=== PATIENT | male | born 1980 | race Caucasian/White ===

== ENCOUNTER 2018-06-07 19:08 | Emergency (ER) | payer OTHER ==
[2018-06-07] MEDS ORDERED: MORPHINE SULFATE 4 MG INJ (19:46)
[2018-06-07] MEDS ORDERED: Sodium Chloride 0.9% 1000 ML 1,000 ML (19:46)
[2018-06-07] MEDS: MORPHINE SULFATE 4 MG INJ IV (19:59)
[2018-06-07] MEDS: Sodium Chloride 0.9% 1000 ML 1,000 ML IV (19:59)
[2018-06-07 20:03] LABS: BASOPHIL % 0.3 % (0.0-0.4); Basophil (Absolute #) 0.04 (0-0.4); Eosinophil % 0.7 % (0.00-5.0); Eosinophil (Absolute #) 0.09 (0-0.5); Granulocyte Absolute (ANC) 8.08 (1.4-6.9); Granulocytes % 64.3 % (36.0-66.0); Hematocrit 42.9 % (42-50); Hemoglobin 14.6 gm/dl (12.5-18.0); Lymphocyte (Absolute #) 3.31 (1.0-4.6); Lymphocytes % 26.3 % (24.0-44.0); Mean Cell Volume 91.9 fl (78-100); Mean Corpuscular Hemoglobin 31.3 pg (26-32); Mean Platelet Volume 10.4 fl (6-9.5); Monocyte (Absolute #) 1.05 (0.0-1.3); Monocytes % 8.4 % (0.0-12.0); Platelet Count 291 K/mm3 (150-450); Red Blood Count 4.67 M/mm3 (4.1-5.6); Red Cell Distribution Width 13.9 % (11.5-14.0); White Blood Count 12.6 K/mm3 (4.0-10.5)
[2018-06-07 20:07] LABS: ADD MANUAL DIFF? NO (NO)
[2018-06-07 20:11] LABS: Lactic Acid 0.9 (0.4-2.0)
[2018-06-07 20:21] LABS: ALBUMIN 4.4 g/dL (3.5-5.0); ALKALINE PHOSPHATASE 114 U/L (38-126); AMYLASE 48 U/L (30-110); ANION GAP 13.1 MEQ/L (5-15); BLOOD UREA NITROGEN 7 mg/dL (9-20); CHLORIDE 105 mmol/L (98-107); Calcium 9.4 mg/dL (8.4-10.2); Carbon Dioxide 24 mmol/L (22-30); Creatinine 1 0.84 mg/dL (0.66-1.25); EST GLOMERULAR FILTRATION RATE > 60.0 ML/MIN; Glucose 86 mg/dL (74-106); LIPASE 126 U/L (23-300); Potassium 3.2 mmol/L (3.5-5.1); SGOT/AST 32 U/L (17-59); SGPT/ALT 48 U/L (0-50); SODIUM 140 mmol/L (137-145); Total Protein 7.3 g/dL (6.3-8.2)
[2018-06-07 20:27] LABS: Appearance CLEAR (CLEAR); Bilirubin NEGATIVE (NEGATIVE); Blood NEGATIVE Ery/ul (0-5); COMPLETE URINE MICROSCOPIC? YES; Collection Type VOID; Glucose NEGATIVE (NEGATIVE); Ketones NEGATIVE (NEGATIVE); Leukocyte Esterase TRACE (NEGATIVE); Nitrite NEGATIVE (NEGATIVE); Protein,Urine Dip NEGATIVE (Negative); Urobilinogen NORMAL mg/dL (0-1)
[2018-06-07 20:28] LABS: ADD URINE CULTURE? NO (NO); Bacteria RARE /HPF (NEGATIVE); Epithelial Cells RARE /HPF (FEW); RBC 0-2 /HPF (0-2); WBC 0-2 /HPF (0-5)
[2018-06-07] MEDS ORDERED: K-LYTE 25 MEQ (21:20)
[2018-06-07] MEDS: K-LYTE 25 MEQ PO (21:25)
== END 2018-06-07 21:39 | disposition home or self-care (01) ==
LOC: ED 19:08
CPT/HCPCS: 36000; 36415; 80053; 81000; 82150; 83605; 83690; 85025; 96374; J2270

== ENCOUNTER 2018-07-31 15:40 | Emergency (ER) | payer OTHER ==
[2018-07-31] MEDS ORDERED: Phenergan 25 MG INJ IV ONE (15:57)
[2018-07-31] MEDS ORDERED: Sodium Chloride 0.9% 1000 ML 1,000 ML IV STA (15:57)
[2018-07-31] MEDS ORDERED: Pepcid 20 MG VIAL IV ONE ×2 (15:57→16:02)
[2018-07-31] MEDS ORDERED: Phenergan 25 MG INJ ONE (16:02)
[2018-07-31] MEDS ORDERED: Sodium Chloride 0.9% 1000 ML 1,000 ML ONE (16:02)
--- NOTE | 2018-07-31 16:04 | ERPHSYRPT ---
- History of Present Illness Time Seen by Provider: 07/31/18 15:59 Historian: patient Exam Limitations: no limitations Patient Subjective Stated Complaint: upper abd pain and vomiting since thursday. denies diarrhea Triage Nursing Assessment: ambulated to room per self. skin w/d, color pale, resp nonlabored. abd soft, tender upper abd. normal bowel sounds. Physician History: This is a 37-year-old white male with history of migraines, seizures, congenital heart disease, high blood pressure, asthma, bronchitis, adrenal insufficiency, hyperthyroidism, arthritis, degenerative disc disease, GERD. Patient arrives with complaint of persistent nausea and vomiting for 6 days he also states he has pain in the epigastric region he states that he presented to [facility] for the second time for the same complaint. Him with him for the fact (patient was seen earlier in the week by [facility]) he was sent to the emergency room for evaluation. pain is described as aching. Past medical history includes migraines, seizures, congenital heart disease, high blood pressure, asthma, bronchitis, adrenal insufficiency, hyperthyroidism , arthritis, degenerative disc disease, GERD, hemorrhoids, ulcers, anxiety, depression, problems eating, panic disorder. Chronic pain. Past surgical history includes tonsillectomy sinus surgeries myringotomy tubes, Social history includes tobacco use, marijuana use patient denies alcohol or illicit drug use. Timing/Duration: day(s) Activities at Onset: none Quality: aching Abdominal Pain Onset Location: epigastric Pain Radiation: no radiation Severity of Pain-Max: moderate Severity of Pain-Current: moderate Associated Symptoms: heartburn, nausea, vomiting, No back, No chest pain, No diaphoresis, No diarrhea, No fever/chills, No fatigue, No headache, No loss of appetite, No neck pain, No rash, No shortness of breath, No syncope Previous symptoms: same symptoms as today, recently seen (seen at [facility] earlier this week for the same, sent to ER from [facility] today) Allergies/Adverse Reactions: No Known Drug Allergies Allergy (Verified 07/31/18 15:51) Home Medications: PANTOPRAZOLE 40 mg Tablet [Protonix 40MG Tablet] 40 mg PO DAILY 12/20/15 [ History] Albuterol Common Canister [Proventil Common Canister] 1 ea IH UD 06/07/18 [History] Amlodipine Besylate 10 mg PO BID 06/07/18 [History] Diclofenac Sodium 50 mg PO DAILY 06/07/18 [History] Fluticasone Propionate [Flonase NASAL] 16 gm NS DAILY 06/07/18 [History] Haloperidol 5 mg PO DAILY 06/07/18 [History] Lisinopril 40 mg PO DAILY 06/07/18 [History] Loratadine 10 mg PO DAILY 06/07/18 [History] Montelukast Sodium 10 mg [Singulair 10 MG] 10 mg PO DAILY 06/07/18 [History] OLANZapine [Zyprexa] 1 tab PO DAILY 06/07/18 [History] Pregabalin [Lyrica 150Mg] 150 mg PO DAILY 06/07/18 [History] Propranolol HCl 60 mg PO DAILY 06/07/18 [History] Simvastatin 10 mg PO DAILY 06/07/18 [History] Hx Tetanus, Diphtheria Vaccination/Date Given: No Hx Influenza Vaccination/Date Given: No Hx Pneumococcal Vaccination/Date Given: No - Review of Systems Constitutional: No Fever, No Chills Eyes: No Symptoms Ears, Nose, & Throat: No Symptoms Respiratory: No Cough, No Dyspnea Cardiac: No Chest Pain, No Edema, No Syncope Abdominal/Gastrointestinal: Abdominal Pain, Nausea, Vomiting, No Diarrhea, No Constipation, No Hematemesis, No Hematochezia, No Melena, No Dysphagia, No Appetite Changes Genitourinary Symptoms: No Dysuria Musculoskeletal: No Back Pain, No Neck Pain Skin: No Rash Neurological: No Dizziness, No Focal Weakness, No Sensory Changes Psychological: No Symptoms Endocrine: No Symptoms All Other Systems: Reviewed and Negative - Past Medical History Pertinent Past Medical History: Yes Neurological History: Migraines ENT History: No Pertinent History Cardiac History: Congenital Heart Disease, Hypertension, Other Respiratory History: Asthma, Bronchitis Endocrine Medical History: Adrenal Insufficiency, Hyperthyroidism Musculoskeletal History: Arthritis, Degenerative Disk Disease GI Medical History: GERD, Hemorrhoids, Ulcer, Other History: Other Psycho-Social History: Anxiety, Depression, Eating Disorders, Panic Disorder Male Reproductive Disorders: No Pertinent History Other Medical History: ANXIETY, DEPRESSION, PANIC DISORDER - Past Surgical History Past Surgical History: Yes Neuro Surgical History: No Pertinent History Cardiac: No Pertinent History Respiratory: No Pertinent History Gastrointestinal: No Pertinent History Genitourinary: No Pertinent History Musculoskeletal: No Pertinent History Male Surgical History: No Pertinent History Other Surgical History: sinus surgery, tubes in ears - Social History Smoking Status: Current every day smoker How long have you smoked: 29 Exposure to second hand smoke: No Drug Use: marijuana Patient Lives Alone: No - Nursing Vital Signs Nursing Vital Signs: Initial Vital Signs Temperature 98.3 F 07/31/18 15:43 Pulse Rate 93 H 07/31/18 15:43 Respiratory Rate 16 07/31/18 15:43 Blood Pressure 136/88 07/31/18 15:43 O2 Sat by Pulse Oximetry 98 07/31/18 15:43 Pain Scale Pain Intensity 0 - Physical Exam General Appearance: no apparent distress, alert Eye Exam: PERRL/EOMI, eyes nml inspection Ears, Nose, Throat Exam: normal ENT inspection, pharynx normal, moist mucous membranes Neck Exam: normal inspection, non-tender, supple, full range of motion Respiratory Exam: normal breath sounds, lungs clear, No respiratory distress Cardiovascular Exam: regular rate/rhythm, normal heart sounds, normal peripheral pulses, capillary refill <2 sec Gastrointestinal/Abdomen Exam: soft, normal bowel sounds, tenderness ( Epigastric tenderness with palpation), No guarding, No ecchymosis, No pulsatile mass, No rebound, No organomegaly, No splenomegaly Back Exam: normal inspection, normal range of motion, No CVA tenderness, No vertebral tenderness Extremity Exam: normal inspection, normal range of motion, pelvis stable Neurologic Exam: alert, oriented x 3, cooperative, flanger II-XII nml as tested, normal mood/affect, nml cerebellar function, sensation nml, No motor deficits Skin Exam: normal color, warm, dry SpO2 Interpretation: normal (98%) SpO2: 98 Oxygen Delivery: Room Air - Course Nursing assessment & vital signs reviewed: Yes - CT Exams Abdomen/Pelvis CT Interpretation: Tele-radiologist Report (CT abdomen and pelvis: Impression: No acute findings) Ordered Tests: Active Orders 24 hr Category Date Time Status IV Insertion STAT Care 07/31/18 15:57 Active ABDOMEN AND PELVIS W CONTRAST [CT] Stat Exams 07/31/18 16:25 Taken AMYLASE Stat Lab 07/31/18 15:55 Completed CBC W DIFF Stat Lab 07/31/18 15:55 Completed CMP Stat Lab 07/31/18 15:55 Completed LIPASE Stat Lab 10/27/18 15:55 Completed UA W/RFX UR CULTURE Stat Lab 07/31/18 16:54 Completed Urine Triage Profile Stat Lab 07/31/18 16:54 Completed Medication Summary Discontinued Medications Generic Name Dose Route Start Last Admin Trade Name Paco PRN Reason Stop Dose Admin Famotidine 20 mg 07/31/18 15:57 07/31/18 16:04 Pepcid 20 Mg Vial IV 07/31/18 15:58 20 mg STAT ONE Administration Famotidine Confirm 07/31/18 16:02 Pepcid 20 Mg Vial Administered 07/31/18 16:03 Dose 20 mg IV .STK-MED ONE Sodium Chloride 1,000 mls @ 999 mls/hr 07/31/18 15:57 07/31/18 16:04 Sodium Chloride 0.9% 1000 Ml IV 07/31/18 16:57 999 mls/hr .Q1H1M STA Administration Sodium Chloride Confirm 07/31/18 16:02 Sodium Chloride 0.9% 1000 Ml Administered 07/31/18 16:03 Dose 1,000 mls @ ud .ROUTE .STK-MED ONE Morphine Sulfate 4 mg 07/31/18 16:25 07/31/18 16:28 Morphine Sulfate 4 Mg Inj IV 07/31/18 16:26 4 mg STAT ONE Administration Morphine Sulfate Confirm 07/31/18 16:27 Morphine Sulfate 4 Mg Inj Administered 07/31/18 16:28 Dose 4 mg .ROUTE .STK-MED ONE Promethazine HCl 12.5 mg 07/31/18 15:57 07/31/18 16:04 Phenergan 25 Mg Inj IV 07/31/18 15:58 12.5 mg STAT ONE Administration Promethazine HCl Confirm 07/31/18 16:02 Phenergan 25 Mg Inj Administered 07/31/18 16:03 Dose 25 mg .ROUTE .STK-MED ONE Lab/Rad Data: Laboratory Result Diagrams 07/31/18 15:55 07/31/18 15:55 Laboratory Results 07/31/18 07/31/18 07/31/18 Range/Units 16:54 16:54 15:55 WBC (4.0-10.5) K/mm3 RBC (4.1-5.6) M/mm3 Hgb (12.5-18.0) gm/dl Hct (42-50) % MCV (78-100) fl MCH (26-32) pg MCHC (32-36) g/dl RDW (11.5-14.0) % Plt Count (150-450) K/mm3 MPV (6-9.5) fl Gran % (36.0-66.0) % Eos # (Auto) (0-0.5) Absolute Lymphs (auto) (1.0-4.6) Absolute Monos (auto) (0.0-1.3) Lymphocytes % (24.0-44.0) % Monocytes % (0.0-12.0) % Eosinophils % (0.00-5.0) % Basophils % (0.0-0.4) % Absolute Granulocytes (1.4-6.9) Basophils # (0-0.4) Sodium 142 (137-145) mmol/L Potassium 3.5 (3.5-5.1) mmol/L Chloride 102 (98-107) mmol/L Carbon Dioxide 28 (22-30) mmol/L Anion Gap 15.7 H (5-15) MEQ/L BUN 8 L (9-20) mg/dL Creatinine 0.78 (0.66-1.25) mg/dL Estimated GFR > 60.0 ML/MIN Glucose 112 H (74-106) mg/dL Calcium 9.9 (8.4-10.2) mg/dL Total Bilirubin 0.50 (0.2-1.3) mg/dL AST 35 (17-59) U/L ALT 66 H (0-50) U/L Alkaline Phosphatase 121 (38-126) U/L Serum Total Protein 7.7 (6.3-8.2) g/dL Albumin 4.7 (3.5-5.0) g/dL Amylase 62 (30-110) U/L Lipase 68 (23-300) U/L Urine Color YELLOW (YELLOW) Urine Appearance CLOUDY (CLEAR) Urine pH 7.0 (5-6) Ur Specific [place] 1.012 (1.005-1.025) Urine Protein NEGATIVE (Negative) Urine Ketones TRACE (NEGATIVE) Urine Blood NEGATIVE (0-5) Aquiles/ul Urine Nitrite NEGATIVE (NEGATIVE) Urine Bilirubin NEGATIVE (NEGATIVE) Urine Urobilinogen NEGATIVE (0-1) mg/dL Ur Leukocyte Esterase NEGATIVE (NEGATIVE) Urine WBC (Auto) 0-2 (0-5) /HPF Urine RBC (Auto) 6-10 (0-2) /HPF U Epithel Cells (Auto) RARE (FEW) /HPF Urine Mucus (Auto) SLIGHT (NEGATIVE) /HPF Urine Culture Reflexed NO (NO) Urine Glucose NEGATIVE (NEGATIVE) mg/dL Urine Opiates Level NEGATIVE (NEGATIVE) Ur Methadone NEGATIVE (NEGATIVE) Urine Barbiturates NEGATIVE (NEGATIVE) Ur Phencyclidine (PCP) NEGATIVE (NEGATIVE) Urine Amphetamine NEGATIVE (NEGATIVE) U Benzodiazepine Level NEGATIVE (NEGATIVE) Urine Cocaine NEGATIVE (NEGATIVE) Urine Marijuana (THC) POSITIVE (NEGATIVE) 07/31/18 Range/Units 15:55 WBC 14.1 H (4.0-10.5) K/mm3 RBC 4.87 (4.1-5.6) M/mm3 Hgb 15.1 (12.5-18.0) gm/dl Hct 45.4 (42-50) % MCV 93.2 (78-100) fl MCH 31.0 (26-32) pg MCHC 33.3 (32-36) g/dl RDW 12.9 (11.5-14.0) % Plt Count 283 (150-450) K/mm3 MPV 10.5 H (6-9.5) fl Gran % 81.0 H (36.0-66.0) % Eos # (Auto) 0.02 (0-0.5) Absolute Lymphs (auto) 1.88 (1.0-4.6) Absolute Monos (auto) 0.76 (0.0-1.3) Lymphocytes % 13.3 L (24.0-44.0) % Monocytes % 5.4 (0.0-12.0) % Eosinophils % 0.1 (0.00-5.0) % Basophils % 0.2 (0.0-0.4) % Absolute Granulocytes 11.41 H (1.4-6.9) Basophils # 0.03 (0-0.4) Sodium (137-145) mmol/L Potassium (3.5-5.1) mmol/L Chloride (98-107) mmol/L Carbon Dioxide (22-30) mmol/L Anion Gap (5-15) MEQ/L BUN (9-20) mg/dL Creatinine (0.66-1.25) mg/dL Estimated GFR ML/MIN Glucose (74-106) mg/dL Calcium (8.4-10.2) mg/dL Total Bilirubin (0.2-1.3) mg/dL AST (17-59) U/L ALT (0-50) U/L Alkaline Phosphatase (38-126) U/L Serum Total Protein (6.3-8.2) g/dL Albumin (3.5-5.0) g/dL Amylase (30-110) U/L Lipase (23-300) U/L Urine Color (YELLOW) Urine Appearance (CLEAR) Urine pH (5-6) Ur Specific [place] (1.005-1.025) Urine Protein (Negative) Urine Ketones (NEGATIVE) Urine Blood (0-5) Aquiles/ul Urine Nitrite (NEGATIVE) Urine Bilirubin (NEGATIVE) Urine Urobilinogen (0-1) mg/dL Ur Leukocyte Esterase (NEGATIVE) Urine WBC (Auto) (0-5) /HPF Urine RBC (Auto) (0-2) /HPF U Epithel Cells (Auto) (FEW) /HPF Urine Mucus (Auto) (NEGATIVE) /HPF Urine Culture Reflexed (NO) Urine Glucose (NEGATIVE) mg/dL Urine Opiates Level (NEGATIVE) Ur Methadone (NEGATIVE) Urine Barbiturates (NEGATIVE) Ur Phencyclidine (PCP) (NEGATIVE) Urine Amphetamine (NEGATIVE) U Benzodiazepine Level (NEGATIVE) Urine Cocaine (NEGATIVE) Urine Marijuana (THC) (NEGATIVE) - Progress Progress: improved Progress Note: 07/31/18 17:55 This is a 37-year-old white male with history of migraines, seizures, congenital heart disease, high blood pressure, asthma, bronchitis, adrenal insufficiency, hyperthyroidism, arthritis, degenerative disc disease, GERD, hemorrhoids, ulcers, anxiety, depression, panic disorder, problems with eating he arrives with complaint of pain in his epigastric region and vomiting symptoms for 6 days. He states it began after eating a steak . He has been seen at [facility] several days ago he presented again to [facility] today and was sent to this emergency room. On arrival patient with stable vitals he had some periumbilical tenderness with palpation he has not vomited since presenting to the emergency room. Patient did have an elevated white count of 14.1 hemoglobin was 15.1 hematocrit 45 4.4 platelets were 283 patient's chemistry remarkable for sodium of 142 potassium 3.5 chloride 102 bicarbonate 28 BUN 8 creatinine 0.7 a glucose 112 amylase and lipase were normal anion gap was slightly elevated at 15.7 patient' s urinalysis was remarkable for 0-2 white cells and 6-10 red cells. Patient was given 1 L of normal saline also given 12.5 mg of Phenergan and 4 mg of morphine. He was also given Pepcid 20 mg IV Patient continue to complain of abdominal pain side he was sent down to CT in view of the abdominal pain and elevated white count. CT of the abdomen and pelvis impression no acute findings. On return from CT patient states he is feeling better. Patient is already on Lyrica at home we will plan the right a prescription for Phenergan 25 mg one orally every 4-6 hours as needed for nausea vomiting or abdominal pain. It is noted that patient states that he does smoke marijuana. Patient will be given a diagnosis of epigastric abdominal pain. Vomiting. Cyclic vomiting syndrome should be considered as well. Patient is return home clear fluids Phenergan as prescribed follow-up with his family doctor. . - Departure Time of Disposition: 17:59 Departure Disposition: Home Clinical Impression: Abdominal pain Qualifiers: Abdominal location: epigastric Qualified Code(s): R10.13 - Epigastric pain Vomiting Qualifiers: Vomiting type: unspecified Vomiting Intractability: non-intractable Nausea presence: with nausea Qualified Code(s): R11.2 - Nausea with vomiting, unspecified Condition: Fair Critical Care Time: No Referrals: BENJAMIN MCGOVERN [Primary Care Provider] - Additional Instructions: Return home. Plenty of fluids. Clear fluids only 24-48 hours if abdominal pain nausea, or vomiting. Consider discontinuing marijuana use especially if having persistent vomiting. Phenergan 25 mg orally every 4-6 hours as needed for nausea vomiting or abdominal pain. Follow-up with your family doctor. Return for acute distress or for severe symptoms Prescriptions: Promethazine HCl 25 mg [Phenergan 25 mg] 25 mg PO Q4-6HPRN PRN #12 tablet PRN Reason: nausea, vomiting, or abd pain
[2018-07-31 16:07] LABS: BASOPHIL % 0.2 % (0.0-0.4); Basophil (Absolute #) 0.03 (0-0.4); Eosinophil % 0.1 % (0.00-5.0); Eosinophil (Absolute #) 0.02 (0-0.5); Granulocyte Absolute (ANC) 11.41 (1.4-6.9); Hematocrit 45.4 % (42-50); Hemoglobin 15.1 gm/dl (12.5-18.0); Lymphocyte (Absolute #) 1.88 (1.0-4.6); Lymphocytes % 13.3 % (24.0-44.0); Mean Cell Volume 93.2 fl (78-100); Mean Corpuscular Hgb Concent. 33.3 g/dl (32-36); Mean Platelet Volume 10.5 fl (6-9.5); Monocyte (Absolute #) 0.76 (0.0-1.3); Monocytes % 5.4 % (0.0-12.0); Platelet Count 283 K/mm3 (150-450); Red Blood Count 4.87 M/mm3 (4.1-5.6); Red Cell Distribution Width 12.9 % (11.5-14.0); White Blood Count 14.1 K/mm3 (4.0-10.5)
[2018-07-31 16:20] LABS: ALBUMIN 4.7 g/dL (3.5-5.0); ALKALINE PHOSPHATASE 121 U/L (38-126); AMYLASE 62 U/L (30-110); ANION GAP 15.7 MEQ/L (5-15); BLOOD UREA NITROGEN 8 mg/dL (9-20); CHLORIDE 102 mmol/L (98-107); Calcium 9.9 mg/dL (8.4-10.2); Carbon Dioxide 28 mmol/L (22-30); Creatinine 1 0.78 mg/dL (0.66-1.25); Glucose 112 mg/dL (74-106); LIPASE 68 U/L (23-300); Potassium 3.5 mmol/L (3.5-5.1); SGOT/AST 35 U/L (17-59); SGPT/ALT 66 U/L (0-50); SODIUM 142 mmol/L (137-145); Total Protein 7.7 g/dL (6.3-8.2)
[2018-07-31] MEDS ORDERED: MORPHINE SULFATE 4 MG INJ IV ONE (16:25)
[2018-07-31] MEDS ORDERED: MORPHINE SULFATE 4 MG INJ ONE (16:27)
[2018-07-31 17:16] LABS: Amphetamine,Urine NEGATIVE (NEGATIVE); Barbiturate,Urine NEGATIVE (NEGATIVE); Benzodiazepine,Urine NEGATIVE (NEGATIVE); Cocaine,Urine NEGATIVE (NEGATIVE); Methadone,Urine NEGATIVE (NEGATIVE); Opiate,Urine NEGATIVE (NEGATIVE); PCP,Urine NEGATIVE (NEGATIVE); THC,Urine POSITIVE (NEGATIVE)
[2018-07-31 17:18] LABS: Appearance CLOUDY (CLEAR); Bilirubin NEGATIVE (NEGATIVE); Blood NEGATIVE Ery/ul (0-5); Glucose NEGATIVE (NEGATIVE); Ketones TRACE (NEGATIVE); Leukocyte Esterase NEGATIVE (NEGATIVE); Nitrite NEGATIVE (NEGATIVE); Protein,Urine Dip NEGATIVE (Negative); Specific Gravity 1.012 (1.005-1.025); Urobilinogen NEGATIVE mg/dL (0-1)
[2018-07-31 17:21] VITALS: BP 119/75; PULSE 74
[2018-07-31 17:52] VITALS: O2SAT 98
--- NOTE | 2018-07-31 20:39 | XRAY ---
Indication: Abdomen pain, nausea, and vomiting 6 days. Multiple contiguous axial images obtained through the abdomen and pelvis using 80 cc of Isovue-370 contrast only. Comparison: None Lung bases are clear. Heart is not enlarged. Noncontrasted stomach and bowel loops appear nonobstructed. Normal appearing appendix with appendicolith. No free fluid/air. Remaining liver, gallbladder, pancreas, spleen, adrenal glands, kidneys, ureters, bladder, and aorta appear unremarkable. No pathologic retroperitoneal lymphadenopathy. Osseous structures intact. Small bilateral fatty inguinal hernias. Impression: 1. Small bilateral fatty inguinal hernias. 2. Appendicolith without appendicitis. 3. Remaining CT abdomen/pelvis with contrast exam is negative. Comment: Preliminary interpretation was made by [facility]. No critical discrepancy. CTDI 23.33
== END 2018-07-31 18:18 | disposition home or self-care (01) ==
LOC: ED 15:40
DX: R10.13 Epigastric pain (principal); R11.2 Nausea with vomiting, unspecified; I10 Essential (primary) hypertension; Z79.899 Other long term (current) drug therapy
CPT/HCPCS: 36000; 36415; 74177; 80053; 80307; 81001; 82150; 83690; 85025; 96360; 96374; 96375; 99284; J2270; J2550

== ENCOUNTER 2018-11-01 10:57 | Emergency (ER) | payer OTHER ==
[2018-11-01] MEDS ORDERED: Pepcid 20 MG VIAL IV ONE ×2 (12:07→12:25)
[2018-11-01] MEDS ORDERED: Sodium Chloride 0.9% 1000 ML 1,000 ML IV STA (12:07)
[2018-11-01] MEDS ORDERED: Phenergan 25 MG INJ IM ONE (12:07)
--- NOTE | 2018-11-01 12:10 | ERPHSYRPT ---
- History of Present Illness Time Seen by Provider: 11/01/18 12:04 Historian: patient Exam Limitations: no limitations Patient Subjective Stated Complaint: vomiting and upper abdominal pain starting at 0920 today. 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 had similar episode 2 months ago. was seen by GI doctor 2 months ago and was scoped. was told it was his "feeding tube waas inflammed" (espophagus) Triage Nursing Assessment: alert and in no distress. states upper abdominal pain since 0920 this AM. vomited this AM. had similar episode 2 months ago. denies diarrhea. denies fever. states has been peeing alot but that isnt new. non tender on palp. Physician History: 38-year-old white male with history of migraines, congenital heart disease, high blood pressure, asthma, bronchitis, adrenal insufficiency. Patient arrives with complaint of epigastric pain vomiting symptoms since 840 this morning. He states he has pain in the epigastric region he has not had any fevers no diarrhea. Patient with similar episode several months ago patient apparently had had a normal CT of the abdomen and had been of seen by a cigarette filter inspector diagnosed with esophagitis. Past medical history includes migraines, congenital heart disease, high blood pressure, asthma, bronchitis, adrenal insufficiency, hyperthyroidism, arthritis , degenerative disc disease, GERD, hemorrhoids, ulcers, anxiety, depression, eating disorder, panic disorder past surgical history includes sinus surgery and tubes in his ears Social history positive for tobacco use Timing/Duration: today (8:40 AM) Activities at Onset: none Quality: aching, cramping Abdominal Pain Onset Location: epigastric Pain Radiation: no radiation Severity of Pain-Max: moderate Severity of Pain-Current: moderate Modifying Factors: Improves With: nothing Associated Symptoms: nausea, vomiting, No back, No chest pain, No diaphoresis, No diarrhea, No fever/chills, No fatigue, No headache, No heartburn, No loss of appetite, No neck pain, No rash, No shortness of breath, No syncope, No testicular pain Previous symptoms: same symptoms as today (similar symptoms 2 months ago) Allergies/Adverse Reactions: No Known Drug Allergies Allergy (Verified 07/31/18 15:51) Home Medications: PANTOPRAZOLE 40 mg Tablet [Protonix 40MG Tablet] 40 mg PO DAILY 12/20/15 [ History] Albuterol Common Canister [Proventil Common Canister] 1 ea IH UD 06/07/18 [History] Amlodipine Besylate 10 mg PO BID 06/07/18 [History] Diclofenac Sodium 50 mg PO DAILY 06/07/18 [History] Fluticasone Propionate [Flonase NASAL] 16 gm NS DAILY 06/07/18 [History] Haloperidol 5 mg PO DAILY 06/07/18 [History] Lisinopril 40 mg PO DAILY 06/07/18 [History] Loratadine 10 mg PO DAILY 06/07/18 [History] Montelukast Sodium 10 mg [Singulair 10 MG] 10 mg PO DAILY 06/07/18 [History] OLANZapine [Zyprexa] 1 tab PO DAILY 06/07/18 [History] Pregabalin [Lyrica 150Mg] 150 mg PO DAILY 06/07/18 [History] Propranolol HCl 60 mg PO DAILY 06/07/18 [History] Simvastatin 10 mg PO DAILY 06/07/18 [History] Hx Tetanus, Diphtheria Vaccination/Date Given: No Hx Influenza Vaccination/Date Given: No Hx Pneumococcal Vaccination/Date Given: No - Review of Systems Constitutional: No Fever, No Chills Eyes: No Symptoms Ears, Nose, & Throat: No Symptoms Respiratory: No Cough, No Dyspnea Cardiac: No Chest Pain, No Edema, No Syncope Abdominal/Gastrointestinal: Abdominal Pain (epigastric abdominal pain), Nausea, Vomiting, No Diarrhea, No Constipation, No Hematemesis, No Hematochezia, No Melena, No Dysphagia, No Appetite Changes Genitourinary Symptoms: No Dysuria Musculoskeletal: No Back Pain, No Neck Pain Skin: No Rash Neurological: No Dizziness, No Focal Weakness, No Sensory Changes Psychological: No Symptoms Endocrine: No Symptoms All Other Systems: Reviewed and Negative - Past Medical History Pertinent Past Medical History: Yes Neurological History: Migraines ENT History: No Pertinent History Cardiac History: Congenital Heart Disease, Hypertension, Other Respiratory History: Asthma, Bronchitis Endocrine Medical History: Adrenal Insufficiency, Hyperthyroidism Musculoskeletal History: Arthritis, Degenerative Disk Disease GI Medical History: GERD, Hemorrhoids, Ulcer, Other History: Other Psycho-Social History: Anxiety, Depression, Eating Disorders, Panic Disorder Male Reproductive Disorders: No Pertinent History Other Medical History: ANXIETY, DEPRESSION, PANIC DISORDER - Past Surgical History Past Surgical History: Yes Neuro Surgical History: No Pertinent History Cardiac: No Pertinent History Respiratory: No Pertinent History Gastrointestinal: No Pertinent History Genitourinary: No Pertinent History Musculoskeletal: No Pertinent History Male Surgical History: No Pertinent History Other Surgical History: sinus surgery, tubes in ears - Social History Smoking Status: Current every day smoker How long have you smoked: 29 Exposure to second hand smoke: No Drug Use: marijuana Patient Lives Alone: No - Nursing Vital Signs Nursing Vital Signs: Initial Vital Signs Temperature 99.5 F 11/01/18 11:13 Pulse Rate 85 11/01/18 11:13 Respiratory Rate 18 11/01/18 11:13 Blood Pressure 133/92 11/01/18 11:13 O2 Sat by Pulse Oximetry 98 11/01/18 11:13 Pain Scale Pain Intensity 6 - Physical Exam General Appearance: mild distress Eye Exam: PERRL/EOMI, eyes nml inspection Ears, Nose, Throat Exam: normal ENT inspection, pharynx normal, moist mucous membranes Neck Exam: normal inspection, non-tender, supple, full range of motion Respiratory Exam: normal breath sounds, lungs clear, No respiratory distress Cardiovascular Exam: regular rate/rhythm, normal heart sounds, capillary refill <2 sec Gastrointestinal/Abdomen Exam: soft, tenderness (epigastric tenderness), No distention, No mass, No guarding, No ecchymosis, No pulsatile mass, No rebound, No hernia, No hepatomegaly, No organomegaly, No splenomegaly, No bruit Back Exam: normal inspection, normal range of motion, No CVA tenderness, No vertebral tenderness Extremity Exam: normal inspection, normal range of motion, pelvis stable Neurologic Exam: alert, oriented x 3, cooperative, mainframe systems administrator II-XII nml as tested, normal mood/affect, nml cerebellar function, sensation nml, No motor deficits Skin Exam: normal color, warm, dry SpO2 Interpretation: normal (98%) SpO2: 98 - Course Nursing assessment & vital signs reviewed: Yes EKG Interpreted by Me: RATE, Sinus Rhythm (bpm), Left Kake Deviation, Other (EKG : Sinus arrhythmia, 81 bpm, left axis deviation,no acute ST or T wave changes noted) - CT Exams Abdomen/Pelvis CT Interpretation: Discussed w/radiologist (CT abdomen and pelvis: Impression 1. Stable small bilateral inguinal hernias.2. Remaining CT abdomen/pelvis exam is negative.) Ordered Tests: Active Orders 24 hr Category Date Time Status EKG-ER Only STAT Care 11/01/18 12:07 Active IV Insertion STAT Care 11/01/18 12:07 Active ABDOMEN AND PELVIS W CONTRAST [CT] Stat Exams 11/01/18 13:15 Completed AMYLASE Stat Lab 11/01/18 11:50 Completed CBC W DIFF Stat Lab 11/01/18 11:50 Completed CMP Stat Lab 11/01/18 11:50 Completed LIPASE Stat Lab 11/01/18 11:50 Completed UA W/RFX UR CULTURE Stat Lab 11/01/18 12:07 Completed Urine Triage Profile Stat Lab 11/01/18 12:08 Completed Medication Summary Discontinued Medications Generic Name Dose Route Start Last Admin Trade Name Freq PRN Reason Stop Dose Admin Famotidine 20 mg 11/01/18 12:07 11/01/18 12:31 Pepcid 20 Mg Vial IV 11/01/18 12:08 20 mg STAT ONE Administration Famotidine Confirm 11/01/18 12:25 Pepcid 20 Mg Vial Administered 11/01/18 12:26 Dose 20 mg IV .STK-MED ONE Sodium Chloride 1,000 mls @ 999 mls/hr 11/01/18 12:07 11/01/18 12:31 Sodium Chloride 0.9% 1000 Ml IV 11/01/18 13:07 999 mls/hr .Q1H1M STA Administration Sodium Chloride Confirm 11/01/18 12:25 Sodium Chloride 0.9% 1000 Ml Administered 11/01/18 12:26 Dose 1,000 mls @ ud .ROUTE .STK-MED ONE Morphine Sulfate 4 mg 11/01/18 14:27 Morphine Sulfate 4 Mg Inj IV 11/01/18 14:28 STAT ONE Promethazine HCl 25 mg 11/01/18 12:07 11/01/18 12:31 Phenergan 25 Mg Inj IM 11/01/18 12:08 25 mg STAT ONE Administration Promethazine HCl Confirm 11/01/18 12:25 Phenergan 25 Mg Inj Administered 11/01/18 12:26 Dose 25 mg .ROUTE .STK-MED ONE Lab/Rad Data: Laboratory Result Diagrams 11/01/18 11:50 11/01/18 11:50 Laboratory Results 11/01/18 11/01/18 11/01/18 Range/Units 12:08 12:07 11:50 WBC (4.0-10.5) K/mm3 RBC (4.1-5.6) M/mm3 Hgb (12.5-18.0) gm/dl Hct (42-50) % MCV (78-100) fl MCH (26-32) pg MCHC (32-36) g/dl RDW (11.5-14.0) % Plt Count (150-450) K/mm3 MPV (6-9.5) fl Gran % (36.0-66.0) % Eos # (Auto) (0-0.5) Absolute Lymphs (auto) (1.0-4.6) Absolute Monos (auto) (0.0-1.3) Lymphocytes % (24.0-44.0) % Monocytes % (0.0-12.0) % Eosinophils % (0.00-5.0) % Basophils % (0.0-0.4) % Absolute Granulocytes (1.4-6.9) Basophils # (0-0.4) Sodium 139 (137-145) mmol/L Potassium 4.4 (3.5-5.1) mmol/L Chloride 102 (98-107) mmol/L Carbon Dioxide 28 (22-30) mmol/L Anion Gap 13.8 (5-15) MEQ/L BUN 12 (9-20) mg/dL Creatinine 0.89 (0.66-1.25) mg/dL Estimated GFR > 60.0 ML/MIN Glucose 128 H (74-106) mg/dL Calcium 9.8 (8.4-10.2) mg/dL Total Bilirubin 0.50 (0.2-1.3) mg/dL AST 24 (17-59) U/L ALT 45 (0-50) U/L Alkaline Phosphatase 137 H (38-126) U/L Serum Total Protein 8.3 H (6.3-8.2) g/dL Albumin 4.8 (3.5-5.0) g/dL Amylase 69 (30-110) U/L Lipase 91 (23-300) U/L Urine Color YELLOW (YELLOW) Urine Appearance CLEAR (CLEAR) Urine pH 6.0 (5-6) Ur Specific [place] 1.019 (1.005-1.025) Urine Protein NEGATIVE (Negative) Urine Ketones NEGATIVE (NEGATIVE) Urine Blood NEGATIVE (0-5) Aquiles/ul Urine Nitrite NEGATIVE (NEGATIVE) Urine Bilirubin NEGATIVE (NEGATIVE) Urine Urobilinogen 2 (0-1) mg/dL Ur Leukocyte Esterase NEGATIVE (NEGATIVE) Urine WBC (Auto) NONE (0-5) /HPF Urine RBC (Auto) NONE (0-2) /HPF U Epithel Cells (Auto) NONE (FEW) /HPF Urine Bacteria (Auto) NONE (NEGATIVE) /HPF U Non-Squamous Epi Cells RARE (FEW) /HPF Calcium Oxalate Crystal 0-2 (NEGATIVE) /HPF Urine Mucus (Auto) SLIGHT (NEGATIVE) /HPF Urine Culture Reflexed NO (NO) Urine Glucose NEGATIVE (NEGATIVE) mg/dL Urine Opiates Level NEGATIVE (NEGATIVE) Ur Methadone NEGATIVE (NEGATIVE) Urine Barbiturates NEGATIVE (NEGATIVE) Ur Phencyclidine (PCP) NEGATIVE (NEGATIVE) Urine Amphetamine NEGATIVE (NEGATIVE) U Benzodiazepine Level NEGATIVE (NEGATIVE) Urine Cocaine NEGATIVE (NEGATIVE) Urine Marijuana (THC) POSITIVE (NEGATIVE) 11/01/18 Range/Units 11:50 WBC 14.4 H (4.0-10.5) K/mm3 RBC 5.00 (4.1-5.6) M/mm3 Hgb 15.3 (12.5-18.0) gm/dl Hct 46.7 (42-50) % MCV 93.4 (78-100) fl MCH 30.6 (26-32) pg MCHC 32.8 (32-36) g/dl RDW 13.8 (11.5-14.0) % Plt Count 281 (150-450) K/mm3 MPV 11.3 H (6-9.5) fl Gran % 83.2 H (36.0-66.0) % Eos # (Auto) 0.05 (0-0.5) Absolute Lymphs (auto) 1.61 (1.0-4.6) Absolute Monos (auto) 0.73 (0.0-1.3) Lymphocytes % 11.2 L (24.0-44.0) % Monocytes % 5.1 (0.0-12.0) % Eosinophils % 0.3 (0.00-5.0) % Basophils % 0.2 (0.0-0.4) % Absolute Granulocytes 11.96 H (1.4-6.9) Basophils # 0.03 (0-0.4) Sodium (137-145) mmol/L Potassium (3.5-5.1) mmol/L Chloride (98-107) mmol/L Carbon Dioxide (22-30) mmol/L Anion Gap (5-15) MEQ/L BUN (9-20) mg/dL Creatinine (0.66-1.25) mg/dL Estimated GFR ML/MIN Glucose (74-106) mg/dL Calcium (8.4-10.2) mg/dL Total Bilirubin (0.2-1.3) mg/dL AST (17-59) U/L ALT (0-50) U/L Alkaline Phosphatase (38-126) U/L Serum Total Protein (6.3-8.2) g/dL Albumin (3.5-5.0) g/dL Amylase (30-110) U/L Lipase (23-300) U/L Urine Color (YELLOW) Urine Appearance (CLEAR) Urine pH (5-6) Ur Specific [place] (1.005-1.025) Urine Protein (Negative) Urine Ketones (NEGATIVE) Urine Blood (0-5) Aquiles/ul Urine Nitrite (NEGATIVE) Urine Bilirubin (NEGATIVE) Urine Urobilinogen (0-1) mg/dL Ur Leukocyte Esterase (NEGATIVE) Urine WBC (Auto) (0-5) /HPF Urine RBC (Auto) (0-2) /HPF U Epithel Cells (Auto) (FEW) /HPF Urine Bacteria (Auto) (NEGATIVE) /HPF U Non-Squamous Epi Cells (FEW) /HPF Calcium Oxalate Crystal (NEGATIVE) /HPF Urine Mucus (Auto) (NEGATIVE) /HPF Urine Culture Reflexed (NO) Urine Glucose (NEGATIVE) mg/dL Urine Opiates Level (NEGATIVE) Ur Methadone (NEGATIVE) Urine Barbiturates (NEGATIVE) Ur Phencyclidine (PCP) (NEGATIVE) Urine Amphetamine (NEGATIVE) U Benzodiazepine Level (NEGATIVE) Urine Cocaine (NEGATIVE) Urine Marijuana (THC) (NEGATIVE) - Progress Progress: improved Progress Note: 11/01/18 14:30 CT abdomen and pelvis positive stable small bilateral fatty inguinal hernias remaining CT abdomen and pelvis unremarkable. Will plan to her discharge patient with Phenergan cannot give Zofran secondary to patient is on Haldol. Also will give patient morphine IV. Plan home with Phenergan. clear fluids continue Protonix. 11/01/18 14:38 - Departure Time of Disposition: 14:31 Departure Disposition: Home Clinical Impression: Epigastric pain Nausea and vomiting Qualifiers: Vomiting type: unspecified Vomiting Intractability: non-intractable Qualified Code(s): R11.2 - Nausea with vomiting, unspecified Condition: Fair Critical Care Time: No Referrals: BENJAMIN MCGOVERN [Primary Care Provider] - Additional Instructions: Return home. Plenty of fluids. Clear fluids only 24-48 hours if nausea and vomiting. Phenergan 25 mg orally every 4-6 hours as needed for nausea and vomiting #12. Continue Protonix as prescribed by your family doctor/cigarette filter inspector. Return for acute distress or for severe symptoms. Prescriptions: Promethazine HCl 25 mg [Phenergan 25 mg] 25 mg PO Q4-6HPRN PRN #12 tablet PRN Reason: nausea and vomiting
[2018-11-01 12:21] LABS: BASOPHIL % 0.2 % (0.0-0.4); Basophil (Absolute #) 0.03 (0-0.4); Eosinophil % 0.3 % (0.00-5.0); Eosinophil (Absolute #) 0.05 (0-0.5); Granulocyte Absolute (ANC) 11.96 (1.4-6.9); Granulocytes % 83.2 % (36.0-66.0); Hematocrit 46.7 % (42-50); Hemoglobin 15.3 gm/dl (12.5-18.0); Lymphocyte (Absolute #) 1.61 (1.0-4.6); Lymphocytes % 11.2 % (24.0-44.0); Mean Cell Volume 93.4 fl (78-100); Mean Corpuscular Hemoglobin 30.6 pg (26-32); Mean Corpuscular Hgb Concent. 32.8 g/dl (32-36); Mean Platelet Volume 11.3 fl (6-9.5); Monocyte (Absolute #) 0.73 (0.0-1.3); Monocytes % 5.1 % (0.0-12.0); Platelet Count 281 K/mm3 (150-450); Red Cell Distribution Width 13.8 % (11.5-14.0); White Blood Count 14.4 K/mm3 (4.0-10.5)
[2018-11-01] MEDS ORDERED: Phenergan 25 MG INJ ONE (12:25)
[2018-11-01] MEDS ORDERED: Sodium Chloride 0.9% 1000 ML 1,000 ML ONE (12:25)
[2018-11-01 12:32] LABS: ALBUMIN 4.8 g/dL (3.5-5.0); ALKALINE PHOSPHATASE 137 U/L (38-126); AMYLASE 69 U/L (30-110); ANION GAP 13.8 MEQ/L (5-15); BLOOD UREA NITROGEN 12 mg/dL (9-20); CHLORIDE 102 mmol/L (98-107); Calcium 9.8 mg/dL (8.4-10.2); Carbon Dioxide 28 mmol/L (22-30); Creatinine 1 0.89 mg/dL (0.66-1.25); Glucose 128 mg/dL (74-106); LIPASE 91 U/L (23-300); Potassium 4.4 mmol/L (3.5-5.1); SGOT/AST 24 U/L (17-59); SGPT/ALT 45 U/L (0-50); SODIUM 139 mmol/L (137-145); Total Protein 8.3 g/dL (6.3-8.2)
[2018-11-01 12:46] LABS: Amphetamine,Urine NEGATIVE (NEGATIVE); Barbiturate,Urine NEGATIVE (NEGATIVE); Benzodiazepine,Urine NEGATIVE (NEGATIVE); Cocaine,Urine NEGATIVE (NEGATIVE); Methadone,Urine NEGATIVE (NEGATIVE); Opiate,Urine NEGATIVE (NEGATIVE); PCP,Urine NEGATIVE (NEGATIVE); THC,Urine POSITIVE (NEGATIVE)
[2018-11-01 12:58] LABS: Appearance CLEAR (CLEAR); Bilirubin NEGATIVE (NEGATIVE); Blood NEGATIVE Ery/ul (0-5); Calcium Oxalate Crystals 0-2 /HPF (NEGATIVE); Glucose NEGATIVE (NEGATIVE); Ketones NEGATIVE (NEGATIVE); Leukocyte Esterase NEGATIVE (NEGATIVE); Mucus SLIGHT /HPF (NEGATIVE); Nitrite NEGATIVE (NEGATIVE); Protein,Urine Dip NEGATIVE (Negative); Specific Gravity 1.019 (1.005-1.025); Urobilinogen 2 mg/dL (0-1)
[2018-11-01 13:11] LABS: Non-Squamous Epithelial Cells RARE /HPF (FEW)
--- NOTE | 2018-11-01 14:18 | XRAY ---
Indication: Epigastric pain. Nausea and vomiting. Multiple contiguous axial images obtained through the abdomen and pelvis using 80 cc Isovue 370 contrast only. Comparison: July 31, 2018. Lung bases remain clear. Heart is not enlarged. Noncontrasted stomach and bowel loops appear nonobstructed. Normal appendix. No free fluid/air. Remaining liver, gallbladder, pancreas, spleen, adrenal glands, kidneys, ureters, and bladder appear normal in CT appearance and attenuation. Aorta is normal in course and caliber without AAA or pathologic retroperitoneal lymphadenopathy. Osseous structures intact. Stable small bilateral fatty inguinal hernias. Impression: 1. Stable small bilateral fatty inguinal hernias. 2. Remaining CT abdomen/pelvis with contrast exam is again negative. CT DI 23.68
[2018-11-01] MEDS ORDERED: MORPHINE SULFATE 4 MG INJ IV ONE (14:27)
[2018-11-01] MEDS ORDERED: MORPHINE SULFATE 4 MG INJ ONE (14:51)
[2018-11-01 15:21] VITALS: BP 116/74; PULSE 92; O2SAT 95
== END 2018-11-01 15:25 | disposition home or self-care (01) ==
LOC: ED 10:57
DX: R11.2 Nausea with vomiting, unspecified (principal); R10.13 Epigastric pain; I10 Essential (primary) hypertension; J45.909 Unspecified asthma, uncomplicated; Z79.899 Other long term (current) drug therapy; E05.90 Thyrotoxicosis, unspecified without thyrotoxic crisis or storm; E27.40 Unspecified adrenocortical insufficiency
CPT/HCPCS: 36000; 36415; 74177; 80053; 80307; 81001; 82150; 83690; 85025; 93005; 96360; 96372; 96374; 96375; 99284; J2270; J2550

== ENCOUNTER 2019-07-27 16:30 | Emergency (ER) | payer OTHER ==
[2019-07-27] MEDS ORDERED: TORAdol 30 mg Injection IM ONE (17:04)
[2019-07-27] MEDS ORDERED: Hydromorphone 1 mg/ml Ampule IM ONE (17:04)
--- NOTE | 2019-07-27 17:05 | ERPHSYRPT ---
- History of Present Illness Time Seen by Provider: 07/27/19 16:45 Source: patient Exam Limitations: no limitations Patient Subjective Stated Complaint: Pt has chronic back pain for the past 4 years, had an MRI a week and a half ago from an F[employer] SALES REPRESENTATIVE at [facility], pt states that he has only been getting about 3 hours sleep a night for the last week or so, states that the pain is in his medial lower back about 4 inches above the hips and radiates down his legs Triage Nursing Assessment: Pt walked into the ER, vitals wnl, rates pain in back 07/14, no visible signs of deformity to back, lungs clear, reports that he has had shots in his back in the past Physician History: Patient has chronic back pain for the past 4 years. Pain worsened over the past 10 days. patient denies any new injury to his back, any repetitive bending or any heavy lifting, any recent car accidents, or sleeping on any new surfaces. Patient denies any recent fevers, perineal numbness, bilateral basilar symptoms, weakness of the lower extremities bilaterally, loss of sensation in the lower extremities bilaterally, saddle paresthesias, weight loss , fevers, black stools, red stools, hematuria or flank pain. Patient sees pain management at [facility], but has not seen his nurse practitioner in the past 10 days and he's had increasing pain. Timing/Duration: day(s), gradual onset, worse Method of Injury: unknown Quality: sharp, aching Back Pain Location: lumbar spine Back Pain Radiation: buttocks Severity of Pain-Max: severe Severity of Pain-Current: severe Modifying Factors: Worsens With: movement Associated Symptoms: lower back pain, No fever, No chills, No sweating, No urinary incontinence, No loss of bowel control, No constipation, No nausea, No vomiting, No problems urinating, No light-headedness, No dizziness, No numbness in legs/feet, No weakness, No sensory/motor loss, No tingling in legs/feet, No muscle spasms Previous symptoms: same symptoms as today (chronic issue), no recent treatment Allergies/Adverse Reactions: No Known Drug Allergies Allergy (Verified 07/27/19 16:55) Home Medications: PANTOPRAZOLE 40 mg Tablet [Protonix 40MG Tablet] 40 mg PO DAILY 12/20/15 [ History] Albuterol Common Canister [Proventil Common Canister] 1 ea IH UD 06/07/18 [History] Amlodipine Besylate 10 mg PO BID 06/07/18 [History] Diclofenac Sodium 50 mg PO DAILY 06/07/18 [History] Fluticasone Propionate [Flonase NASAL] 16 gm NS DAILY 06/07/18 [History] Haloperidol 5 mg PO DAILY 06/07/18 [History] Lisinopril 40 mg PO DAILY 06/07/18 [History] Loratadine 10 mg PO DAILY 06/07/18 [History] Montelukast Sodium 10 mg [Singulair 10 MG] 10 mg PO DAILY 06/07/18 [History] OLANZapine [Zyprexa] 1 tab PO DAILY 06/07/18 [History] Pregabalin [Lyrica 150Mg] 150 mg PO DAILY 06/07/18 [History] Propranolol HCl 60 mg PO DAILY 06/07/18 [History] Simvastatin 10 mg PO DAILY 06/07/18 [History] Hx Tetanus, Diphtheria Vaccination/Date Given: No Hx Influenza Vaccination/Date Given: No Hx Pneumococcal Vaccination/Date Given: No - Review of Systems Constitutional: No Fever, No Chills, No Fatigue Eyes: No Eye Pain, No Vision Changes Ears, Nose, & Throat: No Mouth Pain, No Painful Swallowing Respiratory: No Cough, No Dyspnea, No Dyspnea on Exertion (HICKEY) Cardiac: No Chest Pain, No Palpitations, No Syncope Abdominal/Gastrointestinal: No Abdominal Pain, No Nausea, No Vomiting, No Diarrhea, No Hematemesis, No Hematochezia, No Melena Genitourinary Symptoms: No Dysuria, No Frequency, No Hematuria, No Flank Pain Musculoskeletal: Back Pain, No Neck Pain, No Joint Pain, No Joint Swelling Skin: No Pruritis, No Rash Neurological: No Dizziness, No Headache, No Parasthesia, No Tremors Psychological: No Anxiety Endocrine: No Hair Changes, No Excessive Sweating Hematologic/Lymphatic: No Easy Bleeding, No Easy Bruising All Other Systems: Reviewed and Negative - Past Medical History Pertinent Past Medical History: Yes Neurological History: No Pertinent History ENT History: No Pertinent History Cardiac History: High Cholesterol, Hypertension Respiratory History: Asthma Endocrine Medical History: Hyperthyroidism Musculoskeletal History: Arthritis, Degenerative Disk Disease GI Medical History: GERD, Hemorrhoids, Ulcer, Other History: Other Psycho-Social History: Anxiety, Depression, Eating Disorders, Panic Disorder Male Reproductive Disorders: No Pertinent History Other Medical History: ANXIETY, DEPRESSION, PANIC DISORDER - Past Surgical History Past Surgical History: Yes Neuro Surgical History: No Pertinent History Cardiac: No Pertinent History Respiratory: No Pertinent History Gastrointestinal: No Pertinent History Genitourinary: No Pertinent History Musculoskeletal: No Pertinent History Male Surgical History: No Pertinent History Other Surgical History: sinus surgery, tubes in ears - Social History Smoking Status: Current every day smoker How long have you smoked: 29 Exposure to second hand smoke: No Drug Use: marijuana Patient Lives Alone: No - Nursing Vital Signs Nursing Vital Signs: Initial Vital Signs Temperature 98.2 F 07/27/19 16:39 Pulse Rate 83 07/27/19 16:39 Blood Pressure 128/80 07/27/19 16:39 O2 Sat by Pulse Oximetry 99 07/27/19 16:39 Pain Scale Pain Intensity [Lower Medial 10 Back] Pain Intensity 10 - Physical Exam General Appearance: mild distress Eye Exam: PERRL/EOMI, eyes nml inspection, No scleral icterus Ears, Nose, Throat Exam: pharynx normal, moist mucous membranes Neck Exam: normal inspection, non-tender, supple, full range of motion, No meningismus Respiratory Exam: normal breath sounds, chest tenderness, lungs clear, airway intact, No respiratory distress, No diminished breath sounds, No accessory muscle use, No crackles/rales, No rhonchi, No wheezing, No stridor Cardiovascular Exam: regular rate/rhythm, normal heart sounds, normal peripheral pulses, capillary refill <2 sec Gastrointestinal Exam: soft, normal bowel sounds, No tenderness, No distention, No ecchymosis Neurologic Exam: alert, oriented x 3, cooperative, hvac residential service technician II-XII nml as tested, normal mood/affect, nml cerebellar function, sensation nml, No motor deficits, No sensory deficit, No motor weakness, No facial droop Skin Exam: normal color, warm, dry, No rash, No petechiae SpO2 Interpretation: normal SpO2: 99 O2 Delivery: Room Air - Radiology Exams MRI Lumbar X-ray Interpretation: Other (per radiologist's interpretation from MRI of the lumbar spine on compared to MRI from 08/27/2015: Stable multilevel vertebral hemangiomas; remaining MRI lumbar spine is negative including discs appearing normal.) Ordered Tests: Medication Summary Discontinued Medications Generic Name Dose Route Start Last Admin Trade Name Paco PRN Reason Stop Dose Admin Hydromorphone HCl 1 mg 07/27/19 17:04 07/27/19 17:30 Hydromorphone 1 Mg/Ml Ampule IM 07/27/19 17:05 1 mg STAT ONE Administration Hydromorphone HCl Confirm 07/27/19 17:25 Hydromorphone 1 Mg/Ml Ampule Administered 07/27/19 17:26 Dose 1 mg .ROUTE .STK-MED ONE Ketorolac Tromethamine 60 mg 07/27/19 17:04 07/27/19 17:29 Toradol 30 Mg Injection IM 07/27/19 17:05 60 mg STAT ONE Administration Ketorolac Tromethamine Confirm 07/27/19 17:25 Toradol 30 Mg Injection Administered 07/27/19 17:26 Dose 60 mg .ROUTE .STK-MED ONE - Progress Progress: improved Counseled pt/family regarding: diagnosis, need for follow-up, rad results (from recent MRI) - Departure Departure Disposition: Home Clinical Impression: Acute exacerbation of chronic low back pain, Vertebral body hemangioma, Essential hypertension Condition: Good Critical Care Time: No Referrals: BENJAMIN MCGOVERN [Primary Care Provider] - Follow Up with PCP/3 days Instructions: Low Back Pain (DC) Additional Instructions: Return immediately back to the emergency department if any worse pain, any bilateral symptoms going down the legs, inability to go to the bathroom, diarrhea you cannot control, inability stretcher urine, no abdominal pain, new fever, new weakness in the lower extremities, loss of sensation in the lower extremities, or any other concerning signs or symptoms that were not present at today's emergency department visit for immediate reevaluation in the emergency department.
[2019-07-27] MEDS ORDERED: TORAdol 30 mg Injection ONE (17:25)
[2019-07-27] MEDS ORDERED: Hydromorphone 1 mg/ml Ampule ONE (17:25)
[2019-07-27 18:05] VITALS: BP 118/82; PULSE 93
[2019-07-27 18:12] VITALS: O2SAT 99
== END 2019-07-27 18:36 | disposition home or self-care (01) ==
LOC: ED 16:30
DX: M54.5 Low back pain (principal); D18.09 Hemangioma of other sites; I10 Essential (primary) hypertension
CPT/HCPCS: 96372; 99284; J1170; J1885

== ENCOUNTER 2019-09-06 18:01 | Emergency (ER) | payer OTHER ==
[2019-09-06] MEDS ORDERED: Sodium Chloride 0.9% 1000 ML 1,000 ML IV STA (18:23)
--- NOTE | 2019-09-06 18:23 | ERPHSYRPT ---
- History of Present Illness Time Seen by Provider: 09/06/19 18:10 Source: patient, EMS Exam Limitations: no limitations Patient Subjective Stated Complaint: pt reports fall from standing approx 1430 today, states he struck his head on the kitchen table. pt reports unkown LOC. pt reports severe neck pain. pt also reports lower back pain which is chronic in nature. Triage Nursing Assessment: pt arrives c-collar in place per ems. pt is aox3, pupils perrl, speech is clear, appropriate, afebrile, resps easy and non labored , pt appears in no distress, pt radial pulses strong and equal, pt sensation intact, no obvious accident or injury is appreciated at this time, pt skin is intact. pink warm dry. Physician History: 38 y/o white male with h/o htn, elevated cholesterol, GERD, anxiety/panic disorder on Klonopin and depression presents with syncopal episode and fall. pt only remembers being upright then next he recalls laying on his back on the floor. pt smokes tobacco and marijuana and denies illicit drug use. pt denies cardiac hx. he has done this a few times in the past. event occurred at 1400 today but did not have anyone to watch his child. when his spouse arrived home, ems brought pt into ED with a c collar in place. pt complains of headache and neck pain. no pain anywhere else. pt states he has chronic low back pain. he was evaluated by pain specialist yesterday. pt denies new medications. Occurred: this afternoon Reason for Fall: unknown, fell from standing pos Injuries/Pain Location: head, neck Loss of Consciousness: unsure Severity of Pain-Max: mild Severity of Pain-Current: mild Modifying Factors: Improves With: movement Associated Symptoms (Fall): back pain (chronic), muscle spasms, neck pain Allergies/Adverse Reactions: No Known Drug Allergies Allergy (Verified 09/06/19 18:18) Home Medications: PANTOPRAZOLE 40 mg Tablet [Protonix 40MG Tablet] 40 mg PO DAILY 12/20/15 [ History] Amlodipine Besylate 10 mg PO BID 06/07/18 [History] Diclofenac Sodium 50 mg PO DAILY 06/07/18 [History] Haloperidol 5 mg PO DAILY 06/07/18 [History] Lisinopril 40 mg PO DAILY 06/07/18 [History] Montelukast Sodium 10 mg [Singulair 10 MG] 10 mg PO DAILY 06/07/18 [History] OLANZapine [Zyprexa] 1 tab PO DAILY 06/07/18 [History] Pregabalin [Lyrica 150Mg] 150 mg PO DAILY 06/07/18 [History] Propranolol HCl 60 mg PO DAILY 06/07/18 [History] Simvastatin 10 mg PO DAILY 06/07/18 [History] Armodafinil 50 mg PO DAILY 09/06/19 [History] Benztropine Mesylate 1 mg PO HS 09/06/19 [History] Clonazepam 1 mg PO BID 09/06/19 [History] Cyclobenzaprine HCl 10 mg [Cyclobenzaprine 10 MG] 10 mg PO TIDPRN PRN 12/21 [History] Venlafaxine HCl ER 75 mg [Effexor XR 75 MG] 75 mg PO DAILY 09/06/19 [ History] Hx Tetanus, Diphtheria Vaccination/Date Given: Yes Hx Influenza Vaccination/Date Given: Yes (AUG 2019) Hx Pneumococcal Vaccination/Date Given: No Immunizations Up to Date: Yes - Review of Systems Constitutional: No Symptoms Eyes: No Symptoms Ears, Nose, & Throat: No Symptoms Respiratory: No Symptoms Cardiac: No Symptoms Abdominal/Gastrointestinal: No Symptoms Genitourinary Symptoms: No Symptoms Musculoskeletal: Back Pain, Neck Pain Skin: No Symptoms Neurological: Headache Psychological: No Symptoms Endocrine: No Symptoms Hematologic/Lymphatic: No Symptoms Immunological/Allergic: No Symptoms All Other Systems: Reviewed and Negative - Past Medical History Pertinent Past Medical History: Yes Neurological History: No Pertinent History ENT History: No Pertinent History Cardiac History: High Cholesterol, Hypertension Respiratory History: Asthma Endocrine Medical History: Hyperthyroidism Musculoskeletal History: Arthritis, Degenerative Disk Disease GI Medical History: GERD, Hemorrhoids, Ulcer, Other History: Other Psycho-Social History: Anxiety, Depression, Eating Disorders, Panic Disorder Male Reproductive Disorders: No Pertinent History Other Medical History: ANXIETY, DEPRESSION, PANIC DISORDER - Past Surgical History Past Surgical History: Yes Neuro Surgical History: No Pertinent History Cardiac: No Pertinent History Respiratory: No Pertinent History Gastrointestinal: No Pertinent History Genitourinary: No Pertinent History Musculoskeletal: Orthopedic Surgery Male Surgical History: No Pertinent History Other Surgical History: sinus surgery, tubes in ears. L MENISCUS REPAIR 2017 - Social History Smoking Status: Current every day smoker How long have you smoked: 30 Exposure to second hand smoke: No Drug Use: marijuana Patient Lives Alone: No - Nursing Vital Signs Nursing Vital Signs: Initial Vital Signs Temperature 98.0 F 09/06/19 18:02 Pulse Rate 88 09/06/19 18:02 Respiratory Rate 20 09/06/19 18:02 Blood Pressure 118/86 09/06/19 18:02 O2 Sat by Pulse Oximetry 98 09/06/19 18:02 Pain Scale Pain Intensity 9 - Cyndi Coma Score Best Eye Response ([place]): (4) open spontaneously Best Verbal Response ([place]): (5) oriented Best Motor Response ([place]): (6) obeys commands [place] Total: 15 - Physical Exam General Appearance: no apparent distress, alert, anxiety Head Injury: no evidence of injury Eye Exam: PERRL/EOMI, eyes nml inspection ENT Exam: airway nml, nml ext.inspection, No evidence of ENT injury, No dental injury Neck Exam: supple, trachea midline, full range of motion, normal alignment, normal inspection, muscle spasm Respiratory/Chest Exam: normal breath sounds, No chest tenderness, No respiratory distress Cardiovascular Exam: normal heart sounds, regular rate/rhythm, normal peripheral pulses Gastrointestinal Exam: soft, normal bowel sounds Rectal Exam: not done Back Exam: normal inspection, normal range of motion, No CVA tenderness, No vertebral tenderness Extremity Exam: normal inspection, normal range of motion, pelvis stable Neurologic Exam: alert, oriented x 3, cooperative, foundry worker general II-XII nml as tested Skin Exam: normal color, warm, dry SpO2 Interpretation: normal SpO2: 98 O2 Delivery: Room Air - Course Nursing assessment & vital signs reviewed: Yes EKG Interpreted by Me: RATE (80), Sinus Rhythm, NORMAL AXIS, NORMAL INTERVALS, NORMAL QRS, Other (no comparison ekg) Ordered Tests: Active Orders 24 hr Category Date Time Status Wool Grader STAT Care 09/06/19 18:24 Active Clean Catch Urine Specimen STAT Care 09/06/19 18:23 Active EKG-ER Only STAT Care 09/06/19 18:23 Active Pulse Oximetry (ED) STAT Care 09/06/19 18:23 Active CERVICAL SPINE WO CONTRAST [CT] Stat Exams 09/06/19 18:24 Taken HEAD WITHOUT CONTRAST [CT] Stat Exams 09/06/19 18:24 Taken CBC W DIFF Stat Lab 09/06/19 18:45 Completed CMP Stat Lab 09/06/19 18:45 Completed ETHYL ALCOHOL Stat Lab 09/06/19 18:45 Completed UA W/RFX UR CULTURE Stat Lab 09/06/19 18:29 Completed Urine Triage Profile Stat Lab 09/06/19 18:29 Completed Medication Summary Discontinued Medications Generic Name Dose Route Start Last Admin Trade Name Freq PRN Reason Stop Dose Admin Amoxicillin 500 mg 09/06/19 19:45 Amoxil 500 Mg PO 09/06/19 19:46 STAT ONE Sodium Chloride 1,000 mls @ 999 mls/hr 09/06/19 18:23 09/06/19 19:36 Sodium Chloride 0.9% 1000 Ml IV 09/06/19 19:23 Not Given .Q1H1M STA Lab/Rad Data: Laboratory Result Diagrams 09/06/19 18:45 09/06/19 18:45 Laboratory Results 09/06/19 09/06/19 09/06/19 Range/Units 18:45 18:45 18:29 WBC 11.4 H (4.0-10.5) K/mm3 RBC 4.72 (4.1-5.6) M/mm3 Hgb 14.3 (12.5-18.0) gm/dl Hct 43.1 (42-50) % MCV 91.3 (78-100) fl MCH 30.3 (26-32) pg MCHC 33.2 (32-36) g/dl RDW 13.5 (11.5-14.0) % Plt Count 210 (150-450) K/mm3 MPV 11.3 H (6-9.5) fl Gran % 60.2 (36.0-66.0) % Eos # (Auto) 0.13 (0-0.5) Absolute Lymphs (auto) 3.42 (1.0-4.6) Absolute Monos (auto) 0.96 (0.0-1.3) Lymphocytes % 30.1 (24.0-44.0) % Monocytes % 8.4 (0.0-12.0) % Eosinophils % 1.1 (0.00-5.0) % Basophils % 0.2 (0.0-0.4) % Absolute Granulocytes 6.85 (1.4-6.9) Basophils # 0.02 (0-0.4) Sodium 139 (137-145) mmol/L Potassium 3.9 (3.5-5.1) mmol/L Chloride 102 (98-107) mmol/L Carbon Dioxide 26 (22-30) mmol/L Anion Gap 15.1 H (5-15) MEQ/L BUN 5 L (9-20) mg/dL Creatinine 0.82 (0.66-1.25) mg/dL Estimated GFR > 60.0 ML/MIN Glucose 88 (74-106) mg/dL Calcium 9.8 (8.4-10.2) mg/dL Total Bilirubin 0.60 (0.2-1.3) mg/dL AST 27 (17-59) U/L ALT 28 (0-50) U/L Alkaline Phosphatase 98 (38-126) U/L Serum Total Protein 7.6 (6.3-8.2) g/dL Albumin 4.4 (3.5-5.0) g/dL Urine Color (YELLOW) Urine Appearance (CLEAR) Urine pH (5-6) Ur Specific Lissie (1.005-1.025) Urine Protein (Negative) Urine Ketones (NEGATIVE) Urine Blood (0-5) Aquiles/ul Urine Nitrite (NEGATIVE) Urine Bilirubin (NEGATIVE) Urine Urobilinogen (0-1) mg/dL Ur Leukocyte Esterase (NEGATIVE) Urine WBC (Auto) (0-5) /HPF Urine RBC (Auto) (0-2) /HPF U Epithel Cells (Auto) (FEW) /HPF Urine Bacteria (Auto) (NEGATIVE) /HPF Urine Culture Reflexed (NO) Urine Glucose (NEGATIVE) mg/dL Urine Opiates Level NEGATIVE (NEGATIVE) Ur Methadone NEGATIVE (NEGATIVE) Urine Barbiturates NEGATIVE (NEGATIVE) Ur Phencyclidine (PCP) NEGATIVE (NEGATIVE) Urine Amphetamine NEGATIVE (NEGATIVE) U Benzodiazepine Level NEGATIVE (NEGATIVE) Urine Cocaine NEGATIVE (NEGATIVE) Urine Marijuana (THC) NEGATIVE (NEGATIVE) Ethyl Alcohol < 10 (0-10) mg/dL 09/06/19 Range/Units 18:29 WBC (4.0-10.5) K/mm3 RBC (4.1-5.6) M/mm3 Hgb (12.5-18.0) gm/dl Hct (42-50) % MCV (78-100) fl MCH (26-32) pg MCHC (32-36) g/dl RDW (11.5-14.0) % Plt Count (150-450) K/mm3 MPV (6-9.5) fl Gran % (36.0-66.0) % Eos # (Auto) (0-0.5) Absolute Lymphs (auto) (1.0-4.6) Absolute Monos (auto) (0.0-1.3) Lymphocytes % (24.0-44.0) % Monocytes % (0.0-12.0) % Eosinophils % (0.00-5.0) % Basophils % (0.0-0.4) % Absolute Granulocytes (1.4-6.9) Basophils # (0-0.4) Sodium (137-145) mmol/L Potassium (3.5-5.1) mmol/L Chloride (98-107) mmol/L Carbon Dioxide (22-30) mmol/L Anion Gap (5-15) MEQ/L BUN (9-20) mg/dL Creatinine (0.66-1.25) mg/dL Estimated GFR ML/MIN Glucose (74-106) mg/dL Calcium (8.4-10.2) mg/dL Total Bilirubin (0.2-1.3) mg/dL AST (17-59) U/L ALT (0-50) U/L Alkaline Phosphatase (38-126) U/L Serum Total Protein (6.3-8.2) g/dL Albumin (3.5-5.0) g/dL Urine Color STRAW (YELLOW) Urine Appearance CLEAR (CLEAR) Urine pH 7.0 (5-6) Ur Specific Lissie 1.001 (1.005-1.025) Urine Protein NEGATIVE (Negative) Urine Ketones NEGATIVE (NEGATIVE) Urine Blood NEGATIVE (0-5) Aquiles/ul Urine Nitrite NEGATIVE (NEGATIVE) Urine Bilirubin NEGATIVE (NEGATIVE) Urine Urobilinogen NEGATIVE (0-1) mg/dL Ur Leukocyte Esterase NEGATIVE (NEGATIVE) Urine WBC (Auto) NONE (0-5) /HPF Urine RBC (Auto) NONE (0-2) /HPF U Epithel Cells (Auto) NONE (FEW) /HPF Urine Bacteria (Auto) NONE (NEGATIVE) /HPF Urine Culture Reflexed NO (NO) Urine Glucose NEGATIVE (NEGATIVE) mg/dL Urine Opiates Level (NEGATIVE) Ur Methadone (NEGATIVE) Urine Barbiturates (NEGATIVE) Ur Phencyclidine (PCP) (NEGATIVE) Urine Amphetamine (NEGATIVE) U Benzodiazepine Level (NEGATIVE) Urine Cocaine (NEGATIVE) Urine Marijuana (THC) (NEGATIVE) Ethyl Alcohol (0-10) mg/dL - Progress Progress: unchanged Progress Note: 09/06/19 19:35 ct head-no acute intracranial pathology other than sinusitis left side maxilla ct c spine-no acute fx or subluxation 09/06/19 19:36 Counseled pt/family regarding: lab results, diagnosis, need for follow-up, rad results - Departure Departure Disposition: Home Clinical Impression: Sinusitis, Episode of syncope, Fall Condition: Stable Critical Care Time: No Referrals: BENJAMIN MCGOVERN [Primary Care Provider] - Additional Instructions: drink plenty of fluids. follow up with primary doctor for further management Prescriptions: Amoxicillin 500 mg Cap [Amoxil 500 mg] 500 mg PO TID #30 capsule
[2019-09-06 18:58] LABS: Absolute Neutrophil Ct (ANC) 6.85 (1.4-6.9); BASOPHIL % 0.2 % (0.0-0.4); Basophil (Absolute #) 0.02 (0-0.4); Eosinophil % 1.1 % (0.00-5.0); Eosinophil (Absolute #) 0.13 (0-0.5); Hematocrit 43.1 % (42-50); Hemoglobin 14.3 gm/dl (12.5-18.0); Lymphocyte (Absolute #) 3.42 (1.0-4.6); Lymphocytes % 30.1 % (24.0-44.0); Mean Cell Volume 91.3 fl (78-100); Mean Corpuscular Hemoglobin 30.3 pg (26-32); Mean Corpuscular Hgb Concent. 33.2 g/dl (32-36); Mean Platelet Volume 11.3 fl (6-9.5); Monocyte (Absolute #) 0.96 (0.0-1.3); Monocytes % 8.4 % (0.0-12.0); Neutrophil % 60.2 % (36.0-66.0); Platelet Count 210 K/mm3 (150-450); Red Blood Count 4.72 M/mm3 (4.1-5.6); Red Cell Distribution Width 13.5 % (11.5-14.0); White Blood Count 11.4 K/mm3 (4.0-10.5)
[2019-09-06 19:20] LABS: Appearance CLEAR (CLEAR); Bilirubin NEGATIVE (NEGATIVE); Blood NEGATIVE Ery/ul (0-5); Glucose NEGATIVE (NEGATIVE); Ketones NEGATIVE (NEGATIVE); Leukocyte Esterase NEGATIVE (NEGATIVE); Nitrite NEGATIVE (NEGATIVE); Protein,Urine Dip NEGATIVE (Negative); Specific Gravity 1.001 (1.005-1.025); Urobilinogen NEGATIVE mg/dL (0-1)
[2019-09-06 19:21] LABS: ALBUMIN 4.4 g/dL (3.5-5.0); ALKALINE PHOSPHATASE 98 U/L (38-126); ANION GAP 15.1 MEQ/L (5-15); BLOOD UREA NITROGEN 5 mg/dL (9-20); CHLORIDE 102 mmol/L (98-107); Calcium 9.8 mg/dL (8.4-10.2); Carbon Dioxide 26 mmol/L (22-30); Creatinine 1 0.82 mg/dL (0.66-1.25); Glucose 88 mg/dL (74-106); Potassium 3.9 mmol/L (3.5-5.1); SGOT/AST 27 U/L (17-59); SGPT/ALT 28 U/L (0-50); SODIUM 139 mmol/L (137-145); Total Protein 7.6 g/dL (6.3-8.2)
[2019-09-06 19:28] LABS: ETHYL ALCOHOL < 10 mg/dL (0-10)
[2019-09-06 19:35] LABS: Amphetamine,Urine NEGATIVE (NEGATIVE); Barbiturate,Urine NEGATIVE (NEGATIVE); Benzodiazepine,Urine NEGATIVE (NEGATIVE); Cocaine,Urine NEGATIVE (NEGATIVE); Methadone,Urine NEGATIVE (NEGATIVE); Opiate,Urine NEGATIVE (NEGATIVE); PCP,Urine NEGATIVE (NEGATIVE); THC,Urine NEGATIVE (NEGATIVE)
[2019-09-06] MEDS ORDERED: AMOXIL 500 MG PO ONE (19:45)
[2019-09-06] MEDS ORDERED: AMOXIL 500 MG ONE (19:59)
[2019-09-06 20:13] VITALS: BP 110/65; PULSE 78; O2SAT 99
--- NOTE | 2019-09-07 08:58 | XRAY ---
Indication: Pain following fall. Syncope. Multiple contiguous axial images obtained through the cervical spine. Sagittal and coronal reformatted images obtained. Comparison: February 16, 2008. Minimal motion artifact through the C5-C6 levels. Axial images negative for acute fracture, suspicious bony lesions, or spinal canal stenosis. Sagittal and coronal reformatted images again demonstrates lordotic straightening, positional versus paraspinal spasm. Vertebral body heights/disc spaces maintained. No acute compression fracture, subluxation, or jumped facet. Normal appearing craniocervical junction. Visualized noncontrasted soft tissues including lung apices unremarkable. Impression: 1. Minimal motion artifact. 2. Again cervical lordotic straightening, positional versus paraspinal spasm. 3. Remaining CT cervical spine is negative. CTDI 62.13
--- NOTE | 2019-09-07 09:01 | XRAY ---
Indication: Pain following fall. Syncope. Multiple contiguous axial images obtained through the head without contrast. Comparison: October 31, 2015. Again normal appearing brain parenchyma, ventricles, and bony calvarium. There is new moderate mucosal thickening of the left maxillary sinus and lesser degree right maxillary sinus with note of bilateral antrectomy surgery. Mastoid air cells are clear. Impression: Paranasal sinus disease. Remaining CT head without contrast exam is normal. CTDI 44.55
== END 2019-09-06 20:56 | disposition home or self-care (01) ==
LOC: ED 18:01
DX: R55 Syncope and collapse (principal); S00.93XA Contusion of unspecified part of head, initial encounter; W01.190A Fall on same level from slipping, tripping and stumbling with subsequent striking against furniture, initial encounter; R51 Headache; M54.2 Cervicalgia; J32.9 Chronic sinusitis, unspecified; Z79.899 Other long term (current) drug therapy; M54.9 Dorsalgia, unspecified; R25.2 Cramp and spasm; E78.00 Pure hypercholesterolemia, unspecified; I10 Essential (primary) hypertension; E05.90 Thyrotoxicosis, unspecified without thyrotoxic crisis or storm
CPT/HCPCS: 36415; 70450; 72125; 80053; 80307; 81001; 85025; 93005; 93041; 94760; 99284; G0480; A9270-GY

== ENCOUNTER 2021-03-25 13:20 | Emergency (ER) | payer OTHER ==
[2021-03-25] MEDS ORDERED: Sodium Chloride 0.9% 1000 ML 1,000 ML IV STA (13:45)
[2021-03-25] MEDS ORDERED: PROTONIX 40 MG IV IV ONE ×2 (13:45→13:51)
[2021-03-25] MEDS ORDERED: MORPHINE SULFATE 4 MG INJ IV ONE (13:45)
[2021-03-25] MEDS ORDERED: Zofran 4 MG/2 ML VIAL IV ONE (13:45)
[2021-03-25] MEDS ORDERED: MORPHINE SULFATE 4 MG INJ ONE (13:51)
[2021-03-25] MEDS ORDERED: Sodium Chloride 0.9% 1000 ML 1,000 ML ONE (13:51)
[2021-03-25] MEDS ORDERED: Zofran 4 MG/2 ML VIAL ONE (13:51)
[2021-03-25 14:04] LABS: Absolute Neutrophil Ct (ANC) 7.32 (1.4-6.9); BASOPHIL % 0.1 % (0.0-0.4); Basophil (Absolute #) 0.01 (0-0.4); Eosinophil % 0.1 % (0.00-5.0); Eosinophil (Absolute #) 0.01 (0-0.5); Hematocrit 51.7 % (42-50); Hemoglobin 17.4 gm/dl (12.5-18.0); Lymphocyte (Absolute #) 2.38 (1.0-4.6); Lymphocytes % 21.3 % (24.0-44.0); Mean Cell Volume 89.8 fl (78-100); Mean Corpuscular Hemoglobin 30.2 pg (26-32); Mean Corpuscular Hgb Concent. 33.7 g/dl (32-36); Mean Platelet Volume 10.6 fl (7.5-11.0); Monocyte (Absolute #) 1.45 (0.0-1.3); Neutrophil % 65.5 % (36.0-66.0); Platelet Count 325 K/mm3 (150-450); Red Blood Count 5.76 M/mm3 (4.1-5.6); Red Cell Distribution Width 13.5 % (11.5-14.0); White Blood Count 11.2 K/mm3 (4.0-10.5)
[2021-03-25 14:16] LABS: ALBUMIN 5.2 g/dL (3.5-5.0); ALKALINE PHOSPHATASE 119 U/L (38-126); ANION GAP 16.5 MEQ/L (5-15); BLOOD UREA NITROGEN 21 mg/dL (9-20); CHLORIDE 88 mmol/L (98-107); Calcium 10.5 mg/dL (8.4-10.2); Carbon Dioxide 31 mmol/L (22-30); Creatinine 1 1.03 mg/dL (0.66-1.25); EST GLOMERULAR FILTRATION RATE > 60.0 ML/MIN; Glucose 103 mg/dL (74-106); LIPASE 757 U/L (23-300); Potassium 3.4 mmol/L (3.5-5.1); SGOT/AST 41 U/L (17-59); SGPT/ALT 44 U/L (0-50); SODIUM 133 mmol/L (137-145); Total Protein 8.6 g/dL (6.3-8.2)
[2021-03-25] MEDS ORDERED: GI COCKTAIL 45 ML (Maalox/Lidocaine) PO ONE (14:19)
[2021-03-25] MEDS ORDERED: MAALOX ES 30 ML UNIT DOSE ONE (14:21)
[2021-03-25] MEDS ORDERED: XYLOCAINE HCl Viscous ONE (14:21)
--- NOTE | 2021-03-25 15:16 | XRAY ---
Indication: Low back pain, dysuria, nausea, and vomiting. Multiple contiguous axial images obtained through the abdomen and pelvis using 80 cc Isovue 370 contrast. Comparison: November 01, 2018. Lung bases remain clear. Heart is not enlarged. Noncontrasted stomach and bowel loops nonobstructed again with normal appendix. There is now mild diffuse scattered colonic diverticulosis. No free fluid/air. Liver, gallbladder, pancreas, spleen, adrenal glands, kidneys, ureters, and bladder are normal in CT appearance and attenuation. Aorta normal in course and caliber with very minimal distal aortic calcifications. No pathologic retroperitoneal lymphadenopathy. Osseous structures intact. Stable small bilateral fatty inguinal hernias. Impression: 1. Colonic diverticulosis without diverticulitis. 2. Stable small bilateral fatty inguinal hernias. 3. Remaining CT abdomen/pelvis with contrast exam is again negative.
[2021-03-25 15:44] LABS: Appearance CLEAR (CLEAR); Bilirubin NEGATIVE (NEGATIVE); Blood NEGATIVE Ery/ul (0-5); Glucose NEGATIVE (NEGATIVE); Ketones NEGATIVE (NEGATIVE); Leukocyte Esterase NEGATIVE (NEGATIVE); Mucus SLIGHT /HPF (NEGATIVE); Nitrite NEGATIVE (NEGATIVE); Protein,Urine Dip NEGATIVE (Negative); Specific Gravity 1.046 (1.005-1.025); Urobilinogen NEGATIVE mg/dL (0-1)
--- NOTE | 2021-03-25 15:50 | ERPHSYRPT ---
- History of Present Illness Time Seen by Provider: 03/25/21 13:27 Historian: patient Exam Limitations: no limitations Patient Subjective Stated Complaint: abd pain, fall, NV, decreased appetitte since Thu, no meds since Thu, "not sleeping since Thursday," chest disc omfort, some constipation since Thursday. Triage Nursing Assessment: pt to ED by EMS with multiple complaints- pt c/o abd pain, fall, NV, decreased appetitte since Thu, no meds since Thu, "not sleeping since Thursday," chest discomfort, some constipation since Thursday. pt rates 10/10 abd pain that can double him over. A&Ox4, skin PWD, heart sounds clear, lungs clear and equal bilaterally, ambulated well with no assist. Physician History: 40 years old male presented in the ER with chief complaint of generalized abdominal dull aching pain for the last 5/6 days with associated nausea and multiple episodes of nonprojectile, nonbilious vomiting with no hematemesis. Patient reports he is unable to hold anything down and nausea vomiting gets worse after oral intake. Denies any fever or chills but feels fatigued tired and dehydrated with lack of energy to do his routine activities. Because of repeated vomiting is having some retrosternal burning/acid reflux. Timing/Duration: day(s) (6), intermittent, gradual onset, worse Quality: dullness Abdominal Pain Onset Location: generalized abdomen Pain Radiation: no radiation Severity of Pain-Max: moderate Severity of Pain-Current: moderate Modifying Factors: Worsens With: vomiting Associated Symptoms: nausea, vomiting, No chest pain, No fever/chills Previous symptoms: no prior history Allergies/Adverse Reactions: bee venom protein (honey bee) Allergy (Verified 03/25/21 13:35) Home Medications: PANTOPRAZOLE 40 mg Tablet [Protonix 40MG Tablet] 40 mg PO DAILY 12/20/15 [History] Amlodipine Besylate 10 mg PO BID 06/07/18 [History] Diclofenac Sodium 50 mg PO DAILY 06/07/18 [History] Montelukast Sodium 10 mg [Singulair 10 MG] 10 mg PO DAILY 06/07/18 [History] OLANZapine [Zyprexa] 1 tab PO DAILY 06/07/18 [History] Pregabalin [Lyrica 150Mg] 150 mg PO DAILY 06/07/18 [History] Propranolol HCl 60 mg PO DAILY 06/07/18 [History] Simvastatin 10 mg PO DAILY 06/07/18 [History] haloperidoL [Haloperidol] 5 mg PO DAILY 06/07/18 [History] lisinopriL [Lisinopril] 40 mg PO DAILY 06/07/18 [History] Benztropine Mesylate 1 mg PO HS 09/06/19 [History] Clonazepam 1 mg PO BID 09/06/19 [History] Cyclobenzaprine HCl 10 mg [Cyclobenzaprine 10 MG] 10 mg PO TIDPRN PRN 09/06/19 [History] Venlafaxine HCl ER 75 mg [Effexor XR 75 MG] 75 mg PO DAILY 09/06/19 [History] armodafiniL [Armodafinil] 50 mg PO DAILY 09/06/19 [History] Lurasidone HCl [Latuda] 20 mg PO 03/25/21 [History] Hx Tetanus, Diphtheria Vaccination/Date Given: Yes Hx Influenza Vaccination/Date Given: Yes (AUG 2019) Hx Pneumococcal Vaccination/Date Given: No Immunizations Up to Date: Yes Travel Risk - International Travel Have you traveled outside of the country in past 3 weeks: No - Coronavirus Screening Are you exhibiting any of the following symptoms?: Yes Symptoms: Vomiting/Diarrhea Close contact with a COVID-19 positive Pt in past 14-21 Days: No - Vaccine Status Have you recieved a Covid-19 vaccination: No - Review of Systems Constitutional: Fatigue, Weakness Eyes: No Symptoms Ears, Nose, & Throat: No Symptoms Respiratory: No Symptoms Cardiac: No Symptoms Abdominal/Gastrointestinal: Abdominal Pain, Nausea, Vomiting Genitourinary Symptoms: No Symptoms Musculoskeletal: Myalgias Skin: No Symptoms Neurological: No Symptoms Psychological: No Symptoms Endocrine: No Symptoms Hematologic/Lymphatic: No Symptoms Immunological/Allergic: No Symptoms - Past Medical History Pertinent Past Medical History: Yes Neurological History: No Pertinent History ENT History: No Pertinent History Cardiac History: High Cholesterol, Hypertension Respiratory History: Asthma Endocrine Medical History: Hyperthyroidism Musculoskeletal History: Arthritis, Degenerative Disk Disease GI Medical History: GERD, Hemorrhoids, Ulcer, Other History: Other Psycho-Social History: Anxiety, Depression, Eating Disorders, Panic Disorder Male Reproductive Disorders: No Pertinent History Other Medical History: ANXIETY, DEPRESSION, PANIC DISORDER - Past Surgical History Past Surgical History: Yes Neuro Surgical History: No Pertinent History Cardiac: No Pertinent History Respiratory: No Pertinent History Gastrointestinal: No Pertinent History Genitourinary: No Pertinent History Musculoskeletal: Orthopedic Surgery Male Surgical History: No Pertinent History Other Surgical History: sinus surgery, tubes in ears. L MENISCUS REPAIR 2018 - Social History Smoking Status: Current every day smoker How long have you smoked: 30 Exposure to second hand smoke: No Drug Use: marijuana Patient Lives Alone: Yes - Nursing Vital Signs Nursing Vital Signs: Initial Vital Signs Temperature 97.3 F 03/25/21 13:26 Pulse Rate 96 H 03/25/21 13:26 Respiratory Rate 14 03/25/21 13:26 Blood Pressure 137/97 03/25/21 13:26 O2 Sat by Pulse Oximetry 100 03/25/21 13:26 Pain Scale Pain Intensity 8 - Physical Exam General Appearance: no apparent distress, alert Eye Exam: PERRL/EOMI, eyes nml inspection Ears, Nose, Throat Exam: normal ENT inspection, pharynx normal Neck Exam: normal inspection, non-tender, supple, full range of motion Respiratory Exam: normal breath sounds, lungs clear Cardiovascular Exam: regular rate/rhythm, normal heart sounds Gastrointestinal/Abdomen Exam: soft, normal bowel sounds, tenderness (Mild generalized), No guarding Back Exam: normal inspection, normal range of motion Extremity Exam: normal inspection, normal range of motion Neurologic Exam: alert, oriented x 3, cooperative, card mounter II-XII nml as tested Skin Exam: normal color SpO2 Interpretation: normal SpO2: 100 O2 Delivery: Room Air - Course EKG Interpreted by Me: RATE (76), Sinus Rhythm, NORMAL AXIS, NORMAL INTERVALS, Other (Nonspecific T wave changes) Ordered Tests: Active Orders 24 hr Category Date Time Status Brusher Operator STAT Care 03/25/21 14:19 Active EKG-ER Only STAT Care 03/25/21 14:18 Active IV Insertion STAT Care 03/25/21 13:45 Active NPO (ED) STAT Care 03/25/21 13:45 Active ABDOMEN AND PELVIS W CONTRAST [CT] Stat Exams 03/25/21 13:47 Completed CBC W DIFF Stat Lab 03/25/21 13:50 Completed CMP Stat Lab 03/25/21 13:50 Completed LIPASE Stat Lab 03/25/21 13:50 Completed TROPONIN Q3H Lab 03/25/21 13:50 Completed TROPONIN Q3H Lab 03/25/21 17:00 Ordered TROPONIN Q3H Lab 03/25/21 20:00 Ordered TROPONIN Q3H Lab 03/25/21 23:00 Ordered TROPONIN Q3H Lab 03/26/21 02:00 Ordered UA W/RFX UR CULTURE Stat Lab 03/25/21 14:15 Completed Medication Summary Discontinued Medications Generic Name Dose Route Start Last Admin Trade Name Paco PRN Reason Stop Dose Admin Al Hydrox/Mg Hydrox/Simethicone Confirm 03/25/21 14:21 Maalox Es 30 Ml Unit Dose Administered 03/25/21 14:22 Dose 30 ml .ROUTE .STK-MED ONE Sodium Chloride 1,000 mls @ 999 mls/hr 03/25/21 13:45 03/25/21 13:58 Sodium Chloride 0.9% 1000 Ml IV 03/25/21 14:45 999 mls/hr .Q1H1M STA Administration Sodium Chloride Confirm 03/25/21 13:51 Sodium Chloride 0.9% 1000 Ml Administered 03/25/21 13:52 Dose 1,000 mls @ ud .ROUTE .STK-MED ONE Lidocaine HCl Confirm 03/25/21 14:21 Xylocaine Hcl Viscous * Administered 03/25/21 14:22 Dose 15 ml .ROUTE .STK-MED ONE Magnesium Hydroxide 45 ml 03/25/21 14:19 03/25/21 14:24 Gi Cocktail 45 Ml (Maalox/Lidocaine) PO 03/25/21 14:20 45 ml STAT ONE Administration Morphine Sulfate 4 mg 03/25/21 13:45 03/25/21 13:58 Morphine Sulfate 4 Mg Inj IV 03/25/21 13:46 4 mg STAT ONE Administration Morphine Sulfate Confirm 03/25/21 13:51 Morphine Sulfate 4 Mg Inj Administered 03/25/21 13:52 Dose 4 mg .ROUTE .STK-MED ONE Ondansetron HCl 4 mg 03/25/21 13:45 03/25/21 13:58 Zofran 4 Mg/2 Ml Vial IV 03/25/21 13:46 4 mg STAT ONE Administration Ondansetron HCl Confirm 03/25/21 13:51 Zofran 4 Mg/2 Ml Vial Administered 03/25/21 13:52 Dose 4 mg .ROUTE .STK-MED ONE Pantoprazole Sodium 40 mg 03/25/21 13:45 03/25/21 13:58 Protonix 40 Mg Iv IV 03/25/21 13:46 40 mg STAT ONE Administration Pantoprazole Sodium Confirm 03/25/21 13:51 Protonix 40 Mg Iv Administered 03/25/21 13:52 Dose 40 mg IV .STK-MED ONE Lab/Rad Data: Laboratory Result Diagrams 03/25/21 13:50 03/25/21 13:50 Laboratory Results 03/25/21 03/25/21 03/25/21 Range/Units 14:15 14:07 13:50 WBC (4.0-10.5) K/mm3 RBC (4.1-5.6) M/mm3 Hgb (12.5-18.0) gm/dl Hct (42-50) % MCV (78-100) fl MCH (26-32) pg MCHC (32-36) g/dl RDW (11.5-14.0) % Plt Count (150-450) K/mm3 MPV (7.5-11.0) fl Gran % (36.0-66.0) % Eos # (Auto) (0-0.5) Absolute Lymphs (auto) (1.0-4.6) Absolute Monos (auto) (0.0-1.3) Lymphocytes % (24.0-44.0) % Monocytes % (0.0-12.0) % Eosinophils % (0.00-5.0) % Basophils % (0.0-0.4) % Absolute Granulocytes (1.4-6.9) Basophils # (0-0.4) Sodium (137-145) mmol/L Potassium (3.5-5.1) mmol/L Chloride (98-107) mmol/L Carbon Dioxide (22-30) mmol/L Anion Gap (5-15) MEQ/L BUN (9-20) mg/dL Creatinine (0.66-1.25) mg/dL Estimated GFR ML/MIN Glucose (74-106) mg/dL Calcium (8.4-10.2) mg/dL Total Bilirubin (0.2-1.3) mg/dL AST (17-59) U/L ALT (0-50) U/L Alkaline Phosphatase (38-126) U/L Troponin I < 0.012 (0.000-0.034) ng/mL Serum Total Protein (6.3-8.2) g/dL Albumin (3.5-5.0) g/dL Lipase (23-300) U/L Urine Color YELLOW Cancelled Urine Appearance CLEAR Cancelled Urine pH 5.0 Cancelled Ur Specific [place] 1.046 Cancelled Urine Protein NEGATIVE Cancelled Urine Ketones NEGATIVE Cancelled Urine Blood NEGATIVE Cancelled Urine Nitrite NEGATIVE Cancelled Urine Bilirubin NEGATIVE Cancelled Urine Urobilinogen NEGATIVE Cancelled Ur Leukocyte Esterase NEGATIVE Cancelled Urine WBC (Auto) NONE Cancelled Urine RBC (Auto) NONE Cancelled U Hyaline Cast (Auto) Cancelled U Epithel Cells (Auto) NONE Cancelled Urine Bacteria (Auto) NONE Cancelled U Non-Squamous Epi Cells Cancelled Calcium Oxalate Crystal Cancelled Leucine Crystals Cancelled Cystine Crystals Cancelled Uric Acid Cryst (Auto) Cancelled Triple Phos Crystals Cancelled Amorphous Crystals Cancelled Fatty Casts Cancelled Granular Casts (Auto) Cancelled Waxy Casts (Auto) Cancelled RBC Casts (Auto) Cancelled WBC Casts Cancelled Urine Mucus (Auto) SLIGHT Cancelled U Trichomonas (Auto) Cancelled Urine Yeast (Auto) Cancelled Ur Yeast w Hyphae Cancelled Urine Yeast (Budding) Cancelled Urine Sperm (Auto) Cancelled Ur Oval Fat Bodies Auto Cancelled Urine Culture Reflexed NO Cancelled Urine Glucose NEGATIVE Cancelled 03/25/21 03/25/21 Range/Units 13:50 13:50 WBC 11.2 H (4.0-10.5) K/mm3 RBC 5.76 H (4.1-5.6) M/mm3 Hgb 17.4 (12.5-18.0) gm/dl Hct 51.7 H (42-50) % MCV 89.8 (78-100) fl MCH 30.2 (26-32) pg MCHC 33.7 (32-36) g/dl RDW 13.5 (11.5-14.0) % Plt Count 325 (150-450) K/mm3 MPV 10.6 (7.5-11.0) fl Gran % 65.5 (36.0-66.0) % Eos # (Auto) 0.01 (0-0.5) Absolute Lymphs (auto) 2.38 (1.0-4.6) Absolute Monos (auto) 1.45 H (0.0-1.3) Lymphocytes % 21.3 L (24.0-44.0) % Monocytes % 13.0 H (0.0-12.0) % Eosinophils % 0.1 (0.00-5.0) % Basophils % 0.1 (0.0-0.4) % Absolute Granulocytes 7.32 H (1.4-6.9) Basophils # 0.01 (0-0.4) Sodium 133 L (137-145) mmol/L Potassium 3.4 L (3.5-5.1) mmol/L Chloride 88 L (98-107) mmol/L Carbon Dioxide 31 H (22-30) mmol/L Anion Gap 16.5 H (5-15) MEQ/L BUN 21 H (9-20) mg/dL Creatinine 1.03 (0.66-1.25) mg/dL Estimated GFR > 60.0 ML/MIN Glucose 103 (74-106) mg/dL Calcium 10.5 H (8.4-10.2) mg/dL Total Bilirubin 1.00 (0.2-1.3) mg/dL AST 41 (17-59) U/L ALT 44 (0-50) U/L Alkaline Phosphatase 119 (38-126) U/L Troponin I (0.000-0.034) ng/mL Serum Total Protein 8.6 H (6.3-8.2) g/dL Albumin 5.2 H (3.5-5.0) g/dL Lipase 757 H (23-300) U/L Urine Color Urine Appearance Urine pH Ur Specific [place] Urine Protein Urine Ketones Urine Blood Urine Nitrite Urine Bilirubin Urine Urobilinogen Ur Leukocyte Esterase Urine WBC (Auto) Urine RBC (Auto) U Hyaline Cast (Auto) U Epithel Cells (Auto) Urine Bacteria (Auto) U Non-Squamous Epi Cells Calcium Oxalate Crystal Leucine Crystals Cystine Crystals Uric Acid Cryst (Auto) Triple Phos Crystals Amorphous Crystals Fatty Casts Granular Casts (Auto) Waxy Casts (Auto) RBC Casts (Auto) WBC Casts Urine Mucus (Auto) U Trichomonas (Auto) Urine Yeast (Auto) Ur Yeast w Hyphae Urine Yeast (Budding) Urine Sperm (Auto) Ur Oval Fat Bodies Auto Urine Culture Reflexed Urine Glucose - Progress Progress: improved, re-examined Progress Note: 03/25/21 15:48 40 years old is evaluated for abdominal pain with multiple vomiting for the last few days. Given fluids, morphine and Zofran, on reevaluation feeling much better. He does not have any vomiting while in the ER for almost 3 hours. Work-up consistent with mild dehydration/gastroenteritis. I have also obtain EKG which is normal sinus rhythm with no acute ST elevations. Negative troponins. Patient has mildly elevated lipase but not enough to qualify for acute pancreatitis and I believe it is secondary to repeated episodes of vomiting. Does not have any right upper quadrant tenderness and CT negative for any stone or gallbladder distention/pericholecystic fluid suggesting acute cholecystitis. No acute pancreatitis on the CT, no obstruction perforation/colitis/diverticulitis etc. I believe patient has gastritis, will start him on Zofran, Carafate and Protonix to go home and outpatient follow-up recommended. Discussed signs symptoms of worsening needing return to ER which he seems understanding. Counseled pt/family regarding: lab results, diagnosis, need for follow-up, rad results - Departure Departure Disposition: Home Clinical Impression: Acute gastritis without bleeding Qualifiers: Gastritis type: unspecified gastritis Qualified Code(s): K29.00 - Acute gastritis without bleeding Nausea & vomiting Qualifiers: Vomiting type: unspecified Vomiting Intractability: non-intractable Qualified Code(s): R11.2 - Nausea with vomiting, unspecified Condition: Stable Critical Care Time: No Referrals: BENJAMIN MCGOVERN [Primary Care Provider] - (1-2 days for reevaluation) Instructions: Acute Abdomen (Belly Pain), Adult (DC), Nausea and Vomiting, Adult (DC) Additional Instructions: Drink plenty of fluids. Take Zofran as needed. Continue with Carafate and Protonix. Follow-up with primary care physician for reevaluation. Slowly introduce soft followed by regular diet. Return to ER for intractable pain/vomiting/fever chills or inability to keep anything down. Prescriptions: Ondansetron ODT 4 MG [Zofran Odt 4 mg] 4 mg PO Q6H PRN PRN #10 tab.rapdis PRN Reason: Vomiting Sucralfate 1 gm [Carafate 1 GM] 1 g PO ACHS #20 tablet PANTOPRAZOLE 40 mg Tablet [Protonix 40MG Tablet] 40 mg PO QAM #30 tab
[2021-03-25 16:27] VITALS: BP 142/92; PULSE 76; O2SAT 97
== END 2021-03-25 16:20 | disposition home or self-care (01) ==
LOC: ED 13:20
DX: K29.00 Acute gastritis without bleeding (principal)
CPT/HCPCS: 36000; 36415; 74177; 80053; 81001; 83690; 84484; 85025; 93005; 93041; 96360; 96374; 96375; 99285; J2270; J2405; A9270-GY

== ENCOUNTER 2021-03-31 13:41 | Emergency (ER) | payer OTHER ==
[2021-03-31] MEDS ORDERED: Sodium Chloride 0.9% 1000 ML 1,000 ML IV STA (13:48)
[2021-03-31] MEDS ORDERED: Zofran 4 MG/2 ML VIAL IV ONE (13:48)
[2021-03-31] MEDS ORDERED: TORAdol 30 mg Injection IV ONE (13:48)
[2021-03-31] MEDS ORDERED: Zofran 4 MG/2 ML VIAL ONE (14:21)
[2021-03-31] MEDS ORDERED: Sodium Chloride 0.9% 1000 ML 1,000 ML ONE (14:22)
[2021-03-31] MEDS ORDERED: TORAdol 30 mg Injection ONE (14:22)
[2021-03-31 14:43] LABS: Absolute Neutrophil Ct (ANC) 9.49 (1.4-6.9); BASOPHIL % 0.2 % (0.0-0.4); Basophil (Absolute #) 0.02 (0-0.4); Eosinophil % 0.3 % (0.00-5.0); Eosinophil (Absolute #) 0.03 (0-0.5); Hematocrit 43.8 % (42-50); Hemoglobin 14.8 gm/dl (12.5-18.0); Lymphocyte (Absolute #) 1.56 (1.0-4.6); Lymphocytes % 13.3 % (24.0-44.0); Mean Cell Volume 91.4 fl (78-100); Mean Corpuscular Hemoglobin 30.9 pg (26-32); Mean Corpuscular Hgb Concent. 33.8 g/dl (32-36); Mean Platelet Volume 10.8 fl (7.5-11.0); Monocytes % 5.1 % (0.0-12.0); Neutrophil % 81.1 % (36.0-66.0); Platelet Count 252 K/mm3 (150-450); Red Blood Count 4.79 M/mm3 (4.1-5.6); White Blood Count 11.7 K/mm3 (4.0-10.5)
[2021-03-31 14:56] LABS: ALBUMIN 4.2 g/dL (3.5-5.0); ALKALINE PHOSPHATASE 109 U/L (38-126); AMYLASE 61 U/L (30-110); ANION GAP 12.7 MEQ/L (5-15); BLOOD UREA NITROGEN 5 mg/dL (9-20); CHLORIDE 105 mmol/L (98-107); Calcium 9.4 mg/dL (8.4-10.2); Carbon Dioxide 23 mmol/L (22-30); Creatinine 1 0.88 mg/dL (0.66-1.25); EST GLOMERULAR FILTRATION RATE > 60.0 ML/MIN; Glucose 111 mg/dL (74-106); LIPASE 98 U/L (23-300); Potassium 3.2 mmol/L (3.5-5.1); SGOT/AST 23 U/L (17-59); SGPT/ALT 31 U/L (0-50); SODIUM 138 mmol/L (137-145); Total Protein 6.8 g/dL (6.3-8.2)
[2021-03-31 15:11] VITALS: BP 142/82; PULSE 89; O2SAT 98
[2021-03-31 15:11] LABS: Amourphous Crystal MANY /HPF (NEGATIVE); Appearance CLOUDY (CLEAR); Bilirubin NEGATIVE (NEGATIVE); Blood NEGATIVE Ery/ul (0-5); Glucose NEGATIVE (NEGATIVE); Ketones NEGATIVE (NEGATIVE); Leukocyte Esterase NEGATIVE (NEGATIVE); Nitrite NEGATIVE (NEGATIVE); Protein,Urine Dip NEGATIVE (Negative); Specific Gravity 1.012 (1.005-1.025); Urobilinogen NEGATIVE mg/dL (0-1)
--- NOTE | 2021-03-31 16:32 | ERPHSYRPT ---
- History of Present Illness Time Seen by Provider: 03/31/21 13:55 Historian: patient Exam Limitations: no limitations Patient Subjective Stated Complaint: pt here for vomitng, and right uppper abd pain at rib area. he was able to eat [employer] today. pt was seen in er about 3 days ago for samething.pt took zofran today Triage Nursing Assessment: pt arrived per ambulance alert, resp easy, skin w/d/p. vomited in ambulnace, abd soft Physician History: Patient is a 40-year-old male who presents from home by ambulance with a complaint of continuing right upper quadrant abdominal pain. He was seen this past Thursday for nausea and vomiting he was treated and initially felt better but then in the last 24 hours the nausea vomiting and pain in the right upper quadrant has recurred. Timing/Duration: day(s) (5), worse Activities at Onset: emotional stress (Is presently under great stress from marital discord) Quality: cramping, sharpness Abdominal Pain Onset Location: RUQ Pain Radiation: no radiation Severity of Pain-Max: severe Severity of Pain-Current: moderate Modifying Factors: Improves With: defecating, eating Associated Symptoms: diarrhea, nausea, vomiting Previous symptoms: no prior history Allergies/Adverse Reactions: bee venom protein (honey bee) Allergy (Verified 03/31/21 13:46) Home Medications: PANTOPRAZOLE 40 mg Tablet [Protonix 40MG Tablet] 40 mg PO DAILY 12/20/15 [History] Amlodipine Besylate 10 mg PO BID 06/07/18 [History] Diclofenac Sodium 50 mg PO DAILY 06/07/18 [History] Montelukast Sodium 10 mg [Singulair 10 MG] 10 mg PO DAILY 06/07/18 [History] OLANZapine [Zyprexa] 1 tab PO DAILY 06/07/18 [History] Pregabalin [Lyrica 150Mg] 150 mg PO DAILY 06/07/18 [History] Propranolol HCl 60 mg PO DAILY 06/07/18 [History] Simvastatin 10 mg PO DAILY 06/07/18 [History] haloperidoL [Haloperidol] 5 mg PO DAILY 06/07/18 [History] lisinopriL [Lisinopril] 40 mg PO DAILY 06/07/18 [History] Benztropine Mesylate 1 mg PO HS 09/06/19 [History] Clonazepam 1 mg PO BID 09/06/19 [History] Cyclobenzaprine HCl 10 mg [Cyclobenzaprine 10 MG] 10 mg PO TIDPRN PRN 09/06/19 [History] Venlafaxine HCl ER 75 mg [Effexor XR 75 MG] 75 mg PO DAILY 09/06/19 [History] armodafiniL [Armodafinil] 50 mg PO DAILY 09/06/19 [History] Lurasidone HCl [Latuda] 20 mg PO DAILY 03/25/21 [History] Hx Tetanus, Diphtheria Vaccination/Date Given: No Hx Influenza Vaccination/Date Given: No Hx Pneumococcal Vaccination/Date Given: No Immunizations Up to Date: Yes Travel Risk - International Travel Have you traveled outside of the country in past 3 weeks: No - Coronavirus Screening Are you exhibiting any of the following symptoms?: Yes Symptoms: Vomiting/Diarrhea Close contact with a COVID-19 positive Pt in past 14-21 Days: No - Vaccine Status Have you recieved a Covid-19 vaccination: No - Review of Systems Constitutional: No Fever, No Chills Eyes: No Symptoms Ears, Nose, & Throat: No Symptoms Respiratory: No Cough, No Dyspnea Cardiac: No Chest Pain, No Edema, No Syncope Abdominal/Gastrointestinal: No Abdominal Pain, No Nausea, No Vomiting, No Diarrhea Genitourinary Symptoms: No Dysuria Musculoskeletal: No Back Pain, No Neck Pain Skin: No Rash Neurological: No Dizziness, No Focal Weakness, No Sensory Changes Psychological: No Symptoms Endocrine: No Symptoms All Other Systems: Reviewed and Negative - Past Medical History Pertinent Past Medical History: Yes Neurological History: No Pertinent History ENT History: No Pertinent History Cardiac History: High Cholesterol, Hypertension Respiratory History: Asthma Endocrine Medical History: Hyperthyroidism Musculoskeletal History: Arthritis, Degenerative Disk Disease GI Medical History: GERD, Hemorrhoids, Ulcer, Other History: Other Psycho-Social History: Anxiety, Depression, Eating Disorders, Panic Disorder Male Reproductive Disorders: No Pertinent History Other Medical History: ANXIETY, DEPRESSION, PANIC DISORDER - Past Surgical History Past Surgical History: Yes Neuro Surgical History: No Pertinent History Cardiac: No Pertinent History Respiratory: No Pertinent History Gastrointestinal: No Pertinent History Genitourinary: No Pertinent History Musculoskeletal: Orthopedic Surgery Male Surgical History: No Pertinent History Other Surgical History: sinus surgery, tubes in ears. L MENISCUS REPAIR 2018 - Social History Smoking Status: Current every day smoker How long have you smoked: 30 Exposure to second hand smoke: Yes Drug Use: marijuana Patient Lives Alone: Yes - Nursing Vital Signs Nursing Vital Signs: Initial Vital Signs Pulse Rate 78 03/31/21 13:50 Respiratory Rate 16 03/31/21 13:50 Blood Pressure 151/89 03/31/21 13:50 O2 Sat by Pulse Oximetry 99 03/31/21 13:50 Pain Scale Pain Intensity 7 - Physical Exam General Appearance: moderate distress, alert Eye Exam: PERRL/EOMI, eyes nml inspection Ears, Nose, Throat Exam: normal ENT inspection, pharynx normal, moist mucous membranes Neck Exam: normal inspection, non-tender, supple, full range of motion Respiratory Exam: normal breath sounds, lungs clear, No respiratory distress Cardiovascular Exam: regular rate/rhythm, normal heart sounds Gastrointestinal/Abdomen Exam: tenderness (Right upper quadrant), guarding, No mass Back Exam: normal inspection, normal range of motion, No CVA tenderness, No vertebral tenderness Extremity Exam: normal inspection, normal range of motion, pelvis stable Neurologic Exam: alert, oriented x 3, cooperative, normal mood/affect, nml cerebellar function, sensation nml, No motor deficits Skin Exam: normal color, warm, dry SpO2 Interpretation: normal SpO2: 98 O2 Delivery: Room Air - Course Nursing assessment & vital signs reviewed: Yes EKG Interpreted by Me: RATE (70), Sinus Rhythm, Left [place] Deviation, NORMAL INTERVALS, NORMAL QRS, Non-specific ST Changes - CT Exams Abdomen/Pelvis CT Interpretation: Tele-radiologist Report, Other (CT findings consistent with colitis) Ordered Tests: Active Orders 24 hr Category Date Time Status EKG-ER Only STAT Care 03/31/21 13:48 Active IV Insertion STAT Care 03/31/21 13:48 Active ABDOMEN AND PELVIS W CONTRAST [CT] Stat Exams 03/31/21 15:47 Taken CHEST 1 VIEW (PORTABLE) Stat Exams 03/31/21 13:49 Taken AMYLASE Stat Lab 03/31/21 14:00 Completed BLOOD CULTURE Stat Lab 03/31/21 14:20 Received CBC W DIFF Stat Lab 03/31/21 13:48 Completed CMP Stat Lab 03/31/21 14:00 Completed LIPASE Stat Lab 03/31/21 14:00 Completed Lactic Acid Stat Lab 03/31/21 13:48 Completed TROPONIN Q3H Lab 03/31/21 14:00 Completed TROPONIN Q3H Lab 03/31/21 17:00 Ordered TROPONIN Q3H Lab 03/31/21 20:00 Ordered TROPONIN Q3H Lab 03/31/21 23:00 Ordered TROPONIN Q3H Lab 04/01/21 02:00 Ordered UA W/RFX UR CULTURE Stat Lab 03/31/21 14:49 Completed Medication Summary Discontinued Medications Generic Name Dose Route Start Last Admin Trade Name Paco PRN Reason Stop Dose Admin Sodium Chloride 1,000 mls @ 999 mls/hr 03/31/21 13:48 03/31/21 15:34 Sodium Chloride 0.9% 1000 Ml IV 03/31/21 14:48 Infused .Q1H1M STA Infusion Sodium Chloride Confirm 03/31/21 14:22 Sodium Chloride 0.9% 1000 Ml Administered 03/31/21 14:23 Dose 1,000 mls @ ud .ROUTE .STK-MED ONE Ketorolac Tromethamine 30 mg 03/31/21 13:48 03/31/21 14:25 Toradol 30 Mg Injection IV 03/31/21 13:49 30 mg STAT ONE Administration Ketorolac Tromethamine Confirm 03/31/21 14:22 Toradol 30 Mg Injection Administered 03/31/21 14:23 Dose 30 mg .ROUTE .STK-MED ONE Ondansetron HCl 4 mg 03/31/21 13:48 03/31/21 14:26 Zofran 4 Mg/2 Ml Vial IV 03/31/21 13:49 4 mg STAT ONE Administration Ondansetron HCl Confirm 03/31/21 14:21 Zofran 4 Mg/2 Ml Vial Administered 03/31/21 14:22 Dose 4 mg .ROUTE .STK-MED ONE Lab/Rad Data: Laboratory Result Diagrams 03/31/21 13:48 03/31/21 14:00 Laboratory Results 03/31/21 03/31/21 03/31/21 Range/Units 14:49 14:00 14:00 WBC (4.0-10.5) K/mm3 RBC (4.1-5.6) M/mm3 Hgb (12.5-18.0) gm/dl Hct (42-50) % MCV (78-100) fl MCH (26-32) pg MCHC (32-36) g/dl RDW (11.5-14.0) % Plt Count (150-450) K/mm3 MPV (7.5-11.0) fl Gran % (36.0-66.0) % Eos # (Auto) (0-0.5) Absolute Lymphs (auto) (1.0-4.6) Absolute Monos (auto) (0.0-1.3) Lymphocytes % (24.0-44.0) % Monocytes % (0.0-12.0) % Eosinophils % (0.00-5.0) % Basophils % (0.0-0.4) % Absolute Granulocytes (1.4-6.9) Basophils # (0-0.4) Sodium 138 (137-145) mmol/L Potassium 3.2 L (3.5-5.1) mmol/L Chloride 105 (98-107) mmol/L Carbon Dioxide 23 (22-30) mmol/L Anion Gap 12.7 (5-15) MEQ/L BUN 5 L (9-20) mg/dL Creatinine 0.88 (0.66-1.25) mg/dL Estimated GFR > 60.0 ML/MIN Glucose 111 H (74-106) mg/dL Lactic Acid (0.4-2.0) Calcium 9.4 (8.4-10.2) mg/dL Total Bilirubin 0.40 (0.2-1.3) mg/dL AST 23 (17-59) U/L ALT 31 (0-50) U/L Alkaline Phosphatase 109 (38-126) U/L Troponin I < 0.012 (0.000-0.034) ng/mL Serum Total Protein 6.8 (6.3-8.2) g/dL Albumin 4.2 (3.5-5.0) g/dL Amylase 61 (30-110) U/L Lipase 98 (23-300) U/L Urine Color YELLOW (YELLOW) Urine Appearance CLOUDY (CLEAR) Urine pH 7.0 (5-6) Ur Specific [place] 1.012 (1.005-1.025) Urine Protein NEGATIVE (Negative) Urine Ketones NEGATIVE (NEGATIVE) Urine Blood NEGATIVE (0-5) Aquiles/ul Urine Nitrite NEGATIVE (NEGATIVE) Urine Bilirubin NEGATIVE (NEGATIVE) Urine Urobilinogen NEGATIVE (0-1) mg/dL Ur Leukocyte Esterase NEGATIVE (NEGATIVE) Urine WBC (Auto) NONE (0-5) /HPF Urine RBC (Auto) NONE (0-2) /HPF U Epithel Cells (Auto) NONE (FEW) /HPF Urine Bacteria (Auto) NONE (NEGATIVE) /HPF Amorphous Crystals MANY (NEGATIVE) /HPF Urine Culture Reflexed NO (NO) Urine Glucose NEGATIVE (NEGATIVE) mg/dL 03/31/21 03/31/21 Range/Units 13:48 13:48 WBC 11.7 H (4.0-10.5) K/mm3 RBC 4.79 (4.1-5.6) M/mm3 Hgb 14.8 (12.5-18.0) gm/dl Hct 43.8 (42-50) % MCV 91.4 (78-100) fl MCH 30.9 (26-32) pg MCHC 33.8 (32-36) g/dl RDW 13.0 (11.5-14.0) % Plt Count 252 (150-450) K/mm3 MPV 10.8 (7.5-11.0) fl Gran % 81.1 H (36.0-66.0) % Eos # (Auto) 0.03 (0-0.5) Absolute Lymphs (auto) 1.56 (1.0-4.6) Absolute Monos (auto) 0.60 (0.0-1.3) Lymphocytes % 13.3 L (24.0-44.0) % Monocytes % 5.1 (0.0-12.0) % Eosinophils % 0.3 (0.00-5.0) % Basophils % 0.2 (0.0-0.4) % Absolute Granulocytes 9.49 H (1.4-6.9) Basophils # 0.02 (0-0.4) Sodium (137-145) mmol/L Potassium (3.5-5.1) mmol/L Chloride (98-107) mmol/L Carbon Dioxide (22-30) mmol/L Anion Gap (5-15) MEQ/L BUN (9-20) mg/dL Creatinine (0.66-1.25) mg/dL Estimated GFR ML/MIN Glucose (74-106) mg/dL Lactic Acid 1.7 (0.4-2.0) Calcium (8.4-10.2) mg/dL Total Bilirubin (0.2-1.3) mg/dL AST (17-59) U/L ALT (0-50) U/L Alkaline Phosphatase (38-126) U/L Troponin I (0.000-0.034) ng/mL Serum Total Protein (6.3-8.2) g/dL Albumin (3.5-5.0) g/dL Amylase (30-110) U/L Lipase (23-300) U/L Urine Color (YELLOW) Urine Appearance (CLEAR) Urine pH (5-6) Ur Specific [place] (1.005-1.025) Urine Protein (Negative) Urine Ketones (NEGATIVE) Urine Blood (0-5) Aquiles/ul Urine Nitrite (NEGATIVE) Urine Bilirubin (NEGATIVE) Urine Urobilinogen (0-1) mg/dL Ur Leukocyte Esterase (NEGATIVE) Urine WBC (Auto) (0-5) /HPF Urine RBC (Auto) (0-2) /HPF U Epithel Cells (Auto) (FEW) /HPF Urine Bacteria (Auto) (NEGATIVE) /HPF Amorphous Crystals (NEGATIVE) /HPF Urine Culture Reflexed (NO) Urine Glucose (NEGATIVE) mg/dL - Progress Progress: improved - Departure Departure Disposition: Home Clinical Impression: Colitis Condition: Stable Critical Care Time: No Referrals: BENJAMIN MCGOVERN [Primary Care Provider] - Instructions: Colitis (DC) Additional Instructions: Continue Zofran and protonix. Clear liquids x 48 hrs. See PCP this week. Prescriptions: Hydrocodone/Acetaminophen [Hydrocodone-Acetamin 5-325 mg] 1 tab PO Q4HPRN PRN 3 Days #18 tablet MDD 6 PRN Reason: Pain Metronidazole 500 mg [Flagyl 500 MG] 500 mg PO TID #21 tablet
[2021-03-31] MEDS ORDERED: Hydromorphone 1 mg/ml Injection IV ONE (16:43)
--- NOTE | 2021-03-31 19:30 | XRAY ---
Indication: Nausea, vomiting, diarrhea. Suspect Covid 19. Multiple contiguous axial images obtained through the abdomen and pelvis using 80 cc Isovue-370 contrast. Comparison: March 25, 2021. Lung bases remain clear. Heart not enlarged. Noncontrasted stomach and bowel loops remain nonobstructed. Normal appendix. Minimal colonic diverticulosis. Left hemicolon and sigmoid wall thickening presumed from incomplete distention with colitis not completely excluded in the right clinical setting. No free fluid/air. Remaining liver, gallbladder, pancreas, spleen, adrenal glands, kidneys, ureters, bladder, and aorta appear normal in CT appearance and attenuation. No pathologic retroperitoneal lymphadenopathy. Osseous structures intact. Stable small bilateral fatty inguinal hernias. Impression: 1. Colonic bowel wall thickening presumed incomplete distention. Colitis not completely excluded in the right clinical setting. 2. Again colonic diverticulosis and small bilateral fatty inguinal hernias. Comment: Preliminary interpretation was made by [facility]. No critical discrepancy.
--- NOTE | 2021-03-31 19:30 | XRAY ---
Indication: Flu symptoms. Suspect Covid 19. Comparison: February 28, 2020. Portable chest again demonstrates normal heart and lungs. Bony thorax intact again with old bilateral 6 rib fractures. No new/acute findings.
== END 2021-03-31 17:34 | disposition home or self-care (01) ==
LOC: ED 13:41
DX: M54.5 Low back pain (principal)
CPT/HCPCS: 36000; 36415; 71045; 74177; 80053; 81001; 82150; 83605; 83690; 84484; 85025; 87040; 93005; 96360; 96374; 96375; 99285; U0003; J1885; J2405

== ENCOUNTER 2021-04-19 05:51 | Day surgery (SDC) | payer OTHER ==
[2021-04-19] MEDS ORDERED: Lactated Ringers 1,000 ML IV SCH (06:30)
[2021-04-19] MEDS ORDERED: DIPRIVAN 200 MG/20 ML IV ONE ×2 (08:29→08:47)
--- NOTE | 2021-04-19 09:26 | OP ---
SURGERY DATE/TIME: 04/19/2021 0830 PREOPERATIVE DIAGNOSIS: Chronic diarrhea. POSTOPERATIVE DIAGNOSIS: Mild sigmoid colitis. PROCEDURE: Colonoscopy with cold forceps biopsy. SURGEON: Dr. Russell. ANESTHESIA: MAC. Medications given by anesthesia department. HISTORY: The patient is a 40 year-old white male who reports that he feels like he has colitis problems. He has diarrhea all the time. He has not noticed any blood in the stool. He did have a previous colonoscopy years ago that apparently was normal. The patient was felt the need to have endoscopic evaluation. He was appraised of the risks of the procedure including the risk of perforation, phlebitis, untoward reaction to medication, bleeding and missed lesions. The patient verbalized his understanding and desired to have the procedure performed. DESCRIPTION OF PROCEDURE: The patient was given the medications by the anesthesia department. He had continuous pulse oximetry, ECG monitoring, intermittent blood pressure monitoring and tidal CO2 monitoring during the examination. He was placed in the left lateral decubitus position. A digital rectal examination was performed and revealed normal anal sphincter tone, no masses and normal prostate. The flexible Olympus pediatric colonoscope was used to intubate the rectum. A view of the colon was developed sequentially to the cecum including a distance into the terminal ileum. Upon insertion and withdrawal, including a retroflex view in the rectum, we biopsied some areas in the sigmoid colon that were mildly suspicious for sigmoid colitis after which the scope was removed from the patient who tolerated the procedure well and was sent back to OP recovery in good condition. The prep was noted to be fair to good.
[2021-04-19 09:43] VITALS: BP 147/91; PULSE 86; O2SAT 100
== END 2021-04-19 09:38 | disposition home or self-care (01) ==
LOC: SDC 05:51
PROVIDERS: ATTEND Family Medicine
DX: K52.9 Noninfective gastroenteritis and colitis, unspecified (principal)
CPT/HCPCS: J2704

== ENCOUNTER 2021-04-25 09:22 | Emergency (ER) | payer OTHER ==
[2021-04-25] MEDS ORDERED: Zofran 4 MG/2 ML VIAL IV ONE (10:14)
[2021-04-25] MEDS ORDERED: Sodium Chloride 0.9% 1000 ML 1,000 ML IV STA ×2 (10:14→11:54)
[2021-04-25] MEDS ORDERED: Hydromorphone 1 mg/ml Injection IV ONE (10:14)
[2021-04-25] MEDS ORDERED: Zofran 4 MG/2 ML VIAL ONE (10:17)
[2021-04-25] MEDS ORDERED: Sodium Chloride 0.9% 1000 ML 1,000 ML ONE ×2 (10:18→11:52)
[2021-04-25] MEDS ORDERED: Hydromorphone 1 mg/ml Injection ONE (10:18)
[2021-04-25 10:38] LABS: Absolute Neutrophil Ct (ANC) 11.14 (1.4-6.9); BASOPHIL % 0.1 % (0.0-0.4); Basophil (Absolute #) 0.01 (0-0.4); Eosinophil (Absolute #) 0 (0-0.5); Hematocrit 42.5 % (42-50); Hemoglobin 13.9 gm/dl (12.5-18.0); Lymphocyte (Absolute #) 1.19 (1.0-4.6); Lymphocytes % 9.2 % (24.0-44.0); Mean Cell Volume 93.6 fl (78-100); Mean Corpuscular Hemoglobin 30.6 pg (26-32); Mean Corpuscular Hgb Concent. 32.7 g/dl (32-36); Mean Platelet Volume 10.9 fl (7.5-11.0); Monocyte (Absolute #) 0.62 (0.0-1.3); Monocytes % 4.8 % (0.0-12.0); Neutrophil % 85.9 % (36.0-66.0); Platelet Count 301 K/mm3 (150-450); Red Blood Count 4.54 M/mm3 (4.1-5.6); Red Cell Distribution Width 13.1 % (11.5-14.0)
[2021-04-25 10:43] VITALS: O2SAT 99
[2021-04-25 10:49] LABS: ALBUMIN 4.2 g/dL (3.5-5.0); ALKALINE PHOSPHATASE 88 U/L (38-126); AMYLASE 53 U/L (30-110); ANION GAP 17.7 MEQ/L (5-15); BLOOD UREA NITROGEN 5 mg/dL (9-20); CHLORIDE 104 mmol/L (98-107); Calcium 9.5 mg/dL (8.4-10.2); Carbon Dioxide 23 mmol/L (22-30); Creatinine 1 0.64 mg/dL (0.66-1.25); EST GLOMERULAR FILTRATION RATE > 60.0 ML/MIN; Glucose 119 mg/dL (74-106); LIPASE 66 U/L (23-300); Potassium 3.7 mmol/L (3.5-5.1); SGOT/AST 30 U/L (17-59); SODIUM 140 mmol/L (137-145); Total Protein 6.9 g/dL (6.3-8.2)
--- NOTE | 2021-04-25 10:53 | ERPHSYRPT ---
- History of Present Illness Time Seen by Provider: 04/25/21 09:58 Historian: patient Exam Limitations: no limitations Patient Subjective Stated Complaint: abd pain r/t colitis, seen in ED 2 times 2 weeks ago for same sx. f/u appt with Yvonne scheduled for tomorrow but pain too bad to wait Triage Nursing Assessment: pt to ED by EMS c/o RUQ and epigastric abd pain onset 1800 lat night. pt has hx colitis and states this feels the same. also reports hx GERD. rates 9/10 pain now. tender to palp in RUQ. reports 1 episode emesis this am and some nausea now. also reports no urine output since last night. Physician History: 40 years old male with history of colitis presented in the ER with chief complaint of sudden onset pain in the right abdomen and some in the epigastric area yesterday evening moderate to severe sharp cramping without any significant aggravating or relieving factors, associated with nausea and one episode of vomiting. Patient denies any diarrhea. No fever or chills reported. Reports symptoms similar to previous episodes with colitis. Timing/Duration: yesterday, constant, gradual onset, worse Activities at Onset: rest Quality: cramping, sharpness Abdominal Pain Onset Location: RUQ, epigastric, flank Pain Radiation: no radiation Severity of Pain-Max: severe Severity of Pain-Current: moderate Modifying Factors: Improves With: nothing Associated Symptoms: nausea, vomiting, No diarrhea Previous symptoms: same symptoms as today Allergies/Adverse Reactions: bee venom protein (honey bee) Allergy (Verified 04/19/21 06:21) Home Medications: Simvastatin 10 mg PO DAILY 06/07/18 [History] Albuterol 2.5 mg/0.5 ml [PROVENTIL Solution 2.5 MG/0.5 ML] 2 puffs IH UD 04/16/21 [History] Amlodipine Besylate 5 mg [Norvasc 5 mg] 5 mg PO DAILY 04/16/21 [History] Budesonide 0.5 mg/2 ml [Pulmicort 0.5 mg/2 ml Respules] 2 puff IH Q4HPRN PRN 04/16/21 [History] Celecoxib [Celebrex] 200 mg PO BID 04/16/21 [History] Fluticasone Propionate [Flonase NASAL] 16 gm NS UD 04/16/21 [History] Isosorbide Mononitrate 60 mg [Imdur 60MG] 60 mg PO DAILY 04/16/21 [History] L.acidoph,Paracasei, B.lactis [Probiotic] 1 each PO DAILY 04/16/21 [History] Losartan Potassium 50 mg PO DAILY 04/16/21 [History] Lurasidone HCl [Latuda] 80 mg PO DAILY 04/16/21 [History] Metoprolol Succinate 100 mg [Toprol Xl 100 MG] 100 mg PO DAILY 04/16/21 [History] Mirtazapine [Remeron] 7.5 mg PO DAILY 04/16/21 [History] Omeprazole 20 mg PO BID 04/16/21 [History] Ranolazine 500 MG [Ranexa 500 MG] 500 mg PO BID 04/16/21 [History] Sertraline HCl [Zoloft] 150 mg PO DAILY 04/16/21 [History] Tamsulosin HCl 0.4 mg [Flomax 0.4 MG] 0.4 mg PO DAILY 04/16/21 [History] Lurasidone HCl [Latuda] 80 mg PO DAILY 04/25/21 [History] Hx Tetanus, Diphtheria Vaccination/Date Given: Yes Hx Influenza Vaccination/Date Given: Yes Hx Pneumococcal Vaccination/Date Given: No Immunizations Up to Date: No Travel Risk - International Travel Have you traveled outside of the country in past 3 weeks: No - Coronavirus Screening Are you exhibiting any of the following symptoms?: Yes Symptoms: Vomiting/Diarrhea Close contact with a COVID-19 positive Pt in past 14-21 Days: No - Vaccine Status Have you recieved a Covid-19 vaccination: No - Review of Systems Constitutional: No Symptoms Eyes: No Symptoms Respiratory: No Symptoms Cardiac: No Symptoms Abdominal/Gastrointestinal: Abdominal Pain, Nausea, Vomiting, No Diarrhea Genitourinary Symptoms: No Symptoms Musculoskeletal: No Symptoms Skin: No Symptoms Neurological: No Symptoms Psychological: No Symptoms Endocrine: No Symptoms Hematologic/Lymphatic: No Symptoms Immunological/Allergic: No Symptoms - Past Medical History Pertinent Past Medical History: Yes Neurological History: No Pertinent History ENT History: No Pertinent History Cardiac History: High Cholesterol, Hypertension Respiratory History: Asthma Endocrine Medical History: Hyperthyroidism Musculoskeletal History: Arthritis, Degenerative Disk Disease GI Medical History: GERD, Hemorrhoids, Ulcer, Other History: Other Psycho-Social History: Anxiety, Depression, Eating Disorders, Panic Disorder Male Reproductive Disorders: No Pertinent History Other Medical History: ANXIETY, DEPRESSION, PANIC DISORDER, HPV - Past Surgical History Past Surgical History: Yes Neuro Surgical History: No Pertinent History Cardiac: No Pertinent History Respiratory: No Pertinent History Gastrointestinal: No Pertinent History Genitourinary: No Pertinent History Musculoskeletal: Orthopedic Surgery Male Surgical History: No Pertinent History Other Surgical History: sinus surgery, tubes in ears. L MENISCUS REPAIR 2018 - Social History Smoking Status: Current every day smoker How long have you smoked: years Exposure to second hand smoke: No Drug Use: marijuana Patient Lives Alone: No - Nursing Vital Signs Nursing Vital Signs: Initial Vital Signs Temperature 97.5 F 04/25/21 09:26 Pulse Rate 104 H 04/25/21 09:26 Respiratory Rate 17 04/25/21 09:26 Blood Pressure 151/79 04/25/21 09:26 O2 Sat by Pulse Oximetry 99 04/25/21 09:26 Pain Scale Pain Intensity 7 - Physical Exam General Appearance: no apparent distress, lethargy Eye Exam: PERRL/EOMI, eyes nml inspection Ears, Nose, Throat Exam: normal ENT inspection, pharynx normal Neck Exam: normal inspection, non-tender, supple, full range of motion Respiratory Exam: normal breath sounds, lungs clear Cardiovascular Exam: regular rate/rhythm, normal heart sounds Gastrointestinal/Abdomen Exam: soft, normal bowel sounds, tenderness (Right flank/right upper quadrant/epigastric area), guarding Back Exam: normal inspection Extremity Exam: normal inspection, normal range of motion Neurologic Exam: alert, oriented x 3, cooperative Skin Exam: normal color SpO2 Interpretation: normal SpO2: 99 O2 Delivery: Room Air Ordered Tests: Active Orders 24 hr Category Date Time Status IV Insertion STAT Care 04/25/21 10:14 Active NPO (ED) STAT Care 04/25/21 10:14 Active ABDOMEN AND PELVIS W CONTRAST [CT] Stat Exams 04/25/21 10:30 Completed AMYLASE Stat Lab 04/25/21 10:36 Completed CBC W DIFF Stat Lab 04/25/21 10:36 Completed CMP Stat Lab 04/25/21 10:36 Completed LIPASE Stat Lab 04/25/21 10:36 Completed Lactic Acid Stat Lab 04/25/21 10:19 Completed Lactic Acid Stat Lab 04/25/21 12:21 Received UA W/RFX UR CULTURE Stat Lab 04/25/21 10:36 Completed Medication Summary Discontinued Medications Generic Name Dose Route Start Last Admin Trade Name Paco PRN Reason Stop Dose Admin Hydromorphone HCl 0.5 mg 04/25/21 10:14 04/25/21 10:24 Hydromorphone 1 Mg/Ml Injection IV 04/25/21 10:15 0.5 mg STAT ONE Administration Hydromorphone HCl Confirm 04/25/21 10:18 Hydromorphone 1 Mg/Ml Injection Administered 04/25/21 10:19 Dose 1 mg .ROUTE .STK-MED ONE Sodium Chloride 1,000 mls @ 999 mls/hr 04/25/21 10:14 04/25/21 12:53 Sodium Chloride 0.9% 1000 Ml IV 04/25/21 11:14 Infused .Q1H1M STA Infusion Sodium Chloride Confirm 04/25/21 10:18 Sodium Chloride 0.9% 1000 Ml Administered 04/25/21 10:19 Dose 1,000 mls @ ud .ROUTE .STK-MED ONE Sodium Chloride Confirm 04/25/21 11:52 Sodium Chloride 0.9% 1000 Ml Administered 04/25/21 11:53 Dose 1,000 mls @ ud .ROUTE .STK-MED ONE Sodium Chloride 1,000 mls @ 999 mls/hr 04/25/21 11:54 04/25/21 11:56 Sodium Chloride 0.9% 1000 Ml IV 04/25/21 12:54 999 mls/hr .Q1H1M STA Administration Ondansetron HCl 4 mg 04/25/21 10:14 04/25/21 10:25 Zofran 4 Mg/2 Ml Vial IV 04/25/21 10:15 4 mg STAT ONE Administration Ondansetron HCl Confirm 04/25/21 10:17 Zofran 4 Mg/2 Ml Vial Administered 04/25/21 10:18 Dose 4 mg .ROUTE .STK-MED ONE Lab/Rad Data: Laboratory Result Diagrams 04/25/21 10:36 04/25/21 10:36 Laboratory Results 04/25/21 04/25/21 04/25/21 Range/Units 10:36 10:36 10:36 WBC 13.0 H (4.0-10.5) K/mm3 RBC 4.54 (4.1-5.6) M/mm3 Hgb 13.9 (12.5-18.0) gm/dl Hct 42.5 (42-50) % MCV 93.6 (78-100) fl MCH 30.6 (26-32) pg MCHC 32.7 (32-36) g/dl RDW 13.1 (11.5-14.0) % Plt Count 301 (150-450) K/mm3 MPV 10.9 (7.5-11.0) fl Gran % 85.9 H (36.0-66.0) % Eos # (Auto) 0 (0-0.5) Absolute Lymphs (auto) 1.19 (1.0-4.6) Absolute Monos (auto) 0.62 (0.0-1.3) Lymphocytes % 9.2 L (24.0-44.0) % Monocytes % 4.8 (0.0-12.0) % Eosinophils % 0.0 (0.00-5.0) % Basophils % 0.1 (0.0-0.4) % Absolute Granulocytes 11.14 H (1.4-6.9) Basophils # 0.01 (0-0.4) Sodium 140 (137-145) mmol/L Potassium 3.7 (3.5-5.1) mmol/L Chloride 104 (98-107) mmol/L Carbon Dioxide 23 (22-30) mmol/L Anion Gap 17.7 H (5-15) MEQ/L BUN 5 L (9-20) mg/dL Creatinine 0.64 L (0.66-1.25) mg/dL Estimated GFR > 60.0 ML/MIN Glucose 119 H (74-106) mg/dL Lactic Acid (0.4-2.0) Calcium 9.5 (8.4-10.2) mg/dL Total Bilirubin 0.20 (0.2-1.3) mg/dL AST 30 (17-59) U/L ALT 49 (0-50) U/L Alkaline Phosphatase 88 (38-126) U/L Serum Total Protein 6.9 (6.3-8.2) g/dL Albumin 4.2 (3.5-5.0) g/dL Amylase 53 (30-110) U/L Lipase 66 (23-300) U/L Urine Color YELLOW (YELLOW) Urine Appearance SLIGHTLY CLOUDY (CLEAR) Urine pH 6.0 (5-6) Ur Specific Earle 1.017 (1.005-1.025) Urine Protein 30 (Negative) Urine Ketones NEGATIVE (NEGATIVE) Urine Blood NEGATIVE (0-5) Aquiles/ul Urine Nitrite NEGATIVE (NEGATIVE) Urine Bilirubin NEGATIVE (NEGATIVE) Urine Urobilinogen NEGATIVE (0-1) mg/dL Ur Leukocyte Esterase NEGATIVE (NEGATIVE) Urine WBC (Auto) NONE (0-5) /HPF Urine RBC (Auto) 3-5 (0-2) /HPF U Epithel Cells (Auto) NONE (FEW) /HPF Urine Bacteria (Auto) NONE (NEGATIVE) /HPF Urine Mucus (Auto) SLIGHT (NEGATIVE) /HPF Urine Culture Reflexed NO (NO) Urine Glucose NEGATIVE (NEGATIVE) mg/dL 04/25/21 Range/Units 10:19 WBC (4.0-10.5) K/mm3 RBC (4.1-5.6) M/mm3 Hgb (12.5-18.0) gm/dl Hct (42-50) % MCV (78-100) fl MCH (26-32) pg MCHC (32-36) g/dl RDW (11.5-14.0) % Plt Count (150-450) K/mm3 MPV (7.5-11.0) fl Gran % (36.0-66.0) % Eos # (Auto) (0-0.5) Absolute Lymphs (auto) (1.0-4.6) Absolute Monos (auto) (0.0-1.3) Lymphocytes % (24.0-44.0) % Monocytes % (0.0-12.0) % Eosinophils % (0.00-5.0) % Basophils % (0.0-0.4) % Absolute Granulocytes (1.4-6.9) Basophils # (0-0.4) Sodium (137-145) mmol/L Potassium (3.5-5.1) mmol/L Chloride (98-107) mmol/L Carbon Dioxide (22-30) mmol/L Anion Gap (5-15) MEQ/L BUN (9-20) mg/dL Creatinine (0.66-1.25) mg/dL Estimated GFR ML/MIN Glucose (74-106) mg/dL Lactic Acid 3.9 H (0.4-2.0) Calcium (8.4-10.2) mg/dL Total Bilirubin (0.2-1.3) mg/dL AST (17-59) U/L ALT (0-50) U/L Alkaline Phosphatase (38-126) U/L Serum Total Protein (6.3-8.2) g/dL Albumin (3.5-5.0) g/dL Amylase (30-110) U/L Lipase (23-300) U/L Urine Color (YELLOW) Urine Appearance (CLEAR) Urine pH (5-6) Ur Specific Earle (1.005-1.025) Urine Protein (Negative) Urine Ketones (NEGATIVE) Urine Blood (0-5) Aquiles/ul Urine Nitrite (NEGATIVE) Urine Bilirubin (NEGATIVE) Urine Urobilinogen (0-1) mg/dL Ur Leukocyte Esterase (NEGATIVE) Urine WBC (Auto) (0-5) /HPF Urine RBC (Auto) (0-2) /HPF U Epithel Cells (Auto) (FEW) /HPF Urine Bacteria (Auto) (NEGATIVE) /HPF Urine Mucus (Auto) (NEGATIVE) /HPF Urine Culture Reflexed (NO) Urine Glucose (NEGATIVE) mg/dL - Progress Progress: improved, re-examined Progress Note: 04/25/21 13:01 40 years old is evaluated for abdominal pain with diarrhea and an episode of vomiting. Given fluid bolus and morphine x1, on reevaluation pain is much better. No vomiting while in the ER. No episode of diarrhea in here. Work-up showed lactate of 3.9 with a white count of 13 and chemistries consistent with dehydration with a gap of 17. I have obtained CT abdomen pelvis with contrast which showed finding consistent with enteritis versus ileus. Patient has good bowel sounds. On reevaluation does not have any peritoneal signs. . Repeat check of lactate is 1.5. No UTI. No obvious focus of infection. I think it is probably viral etiology. Recommended supportive care, discussed signs symptoms of worsening needing return to ER which he seems understanding. Counseled pt/family regarding: lab results, diagnosis, need for follow-up, rad results - Departure Departure Disposition: Home Clinical Impression: Enteritis Condition: Stable Critical Care Time: No Referrals: BENJAMIN MCGOVERN [Primary Care Provider] - (1-2 days for reevaluation) Instructions: Acute Abdomen (Belly Pain), Adult (DC) Additional Instructions: Take Tylenol as needed for pain. Take Zofran as needed for nausea and vomiting. Drink plenty of fluids to keep yourself well-hydrated. Return to ER for intractable vomiting/diarrhea/abdominal pain/fever chills etc. Follow-up with primary care physician for reevaluation. Prescriptions: Ondansetron ODT 4 MG [Zofran Odt 4 mg] 4 mg PO Q6H PRN PRN #10 tab.rapdis PRN Reason: Vomiting
[2021-04-25 10:57] LABS: SGPT/ALT 49 U/L (0-50)
[2021-04-25 11:09] LABS: Appearance SLIGHTLY CLOUDY (CLEAR); Bilirubin NEGATIVE (NEGATIVE); Blood NEGATIVE Ery/ul (0-5); Glucose NEGATIVE (NEGATIVE); Ketones NEGATIVE (NEGATIVE); Leukocyte Esterase NEGATIVE (NEGATIVE); Mucus SLIGHT /HPF (NEGATIVE); Nitrite NEGATIVE (NEGATIVE); Protein,Urine Dip 30 (Negative); Specific Gravity 1.017 (1.005-1.025); Urobilinogen NEGATIVE mg/dL (0-1)
[2021-04-25 11:56] VITALS: BP 120/85
--- NOTE | 2021-04-25 12:01 | XRAY ---
Indication: Abdomen pain and vomiting. History colitis. Multiple contiguous images obtained through the abdomen and pelvis using 80 cc Isovue 370 contrast. Comparison: March 31, 2021. Lung bases again clear. Heart not enlarged. Noncontrasted stomach and bowel loops nonobstructed. Left mid abdomen now demonstrates mild fluid distended jejunum up to 3.3 cm with fluid leveling unchanged on delayed imaging, focal ileus versus enteritis. No free fluid/air. Normal air-filled appendix. Stable mild scattered colonic diverticulosis and small bilateral fatty inguinal hernias. Remaining liver, gallbladder, pancreas, spleen, adrenal glands, kidneys, ureters, bladder, and aorta appear unremarkable. Impression: 1. New mild fluid distended jejunum with air-fluid leveling, ileus versus enteritis. 2. Again incidental colonic diverticulosis and small bilateral fatty inguinal hernias.
[2021-04-25 13:31] VITALS: PULSE 77
== END 2021-04-25 13:33 | disposition home or self-care (01) ==
LOC: ED 09:22
DX: K52.9 Noninfective gastroenteritis and colitis, unspecified (principal); K92.9 Disease of digestive system, unspecified
CPT/HCPCS: 36000; 36415; 74177; 80053; 81001; 82150; 83605; 83690; 85025; 96360; 96374; 99284; P9612; J1170; J2405

== ENCOUNTER 2021-04-26 21:55 | Emergency (ER) | payer OTHER ==
--- NOTE | 2021-04-26 22:33 | ERPHSYRPT ---
- History of Present Illness Time Seen by Provider: 04/26/21 22:15 Historian: patient, EMS Exam Limitations: no limitations Patient Subjective Stated Complaint: pt states, "I've been vomiting since Thursday at 1800. I was here yesterday for this same thing and I'm not any better". Triage Nursing Assessment: pt c/o vomiting x3 days. Pt was seen here in the ER yesterday for this same thing and saw Dr. Russell today in the office and gave him a RX for the colitis and wants him to follow up in 1 month. Pt ate earlier today and vomited it up and everything he drinks also comes back up. Pt denies any diarrhea. Pt c/o sob and vomiting and headache. Abd pain is to upper middle area of abd. Physician History: This is a 40-year-old white male who states he has had no prior abdominal surgeries but has been seen multiple times over several years for chronic recurrent vomiting. Patient was last seen in this emergency department on 04/25/2021 and was diagnosed with enteritis versus ileus. He was discharged to home with a prescription for Zofran. He then was seen by Dr. Russell, his primary care physician earlier today. He did not go to the pharmacy to have his prescription filled. Patient states that he has never seen a scooter mechanic in the past. He has had these symptoms over several years. He did not think the Zofran helped him much. Patient has a history of elevated cholesterol, hypertension, hypothyroidism, DJD, gastroesophageal reflux disease and peptic ulcer disease. He also has a history of anxiety disorder and panic disorder. Patient smokes marijuana. Timing/Duration: day(s) (Proximately 3 days), worse Activities at Onset: none Quality: cramping Abdominal Pain Onset Location: generalized abdomen Pain Radiation: no radiation Severity of Pain-Max: moderate Severity of Pain-Current: moderate Modifying Factors: Improves With: vomiting Associated Symptoms: loss of appetite, nausea, vomiting Previous symptoms: same symptoms as today, recently seen, recent hospitalization, recently treated Allergies/Adverse Reactions: bee venom protein (honey bee) Allergy (Verified 04/26/21 22:09) Home Medications: Simvastatin 10 mg PO DAILY 06/07/18 [History] Albuterol 2.5 mg/0.5 ml [PROVENTIL Solution 2.5 MG/0.5 ML] 2 puffs IH UD 04/16/21 [History] Amlodipine Besylate 5 mg [Norvasc 5 mg] 5 mg PO DAILY 04/16/21 [History] Budesonide 0.5 mg/2 ml [Pulmicort 0.5 mg/2 ml Respules] 2 puff IH Q4HPRN PRN 04/16/21 [History] Fluticasone Propionate [Flonase NASAL] 16 gm NS UD 04/16/21 [History] Isosorbide Mononitrate 60 mg [Imdur 60MG] 60 mg PO DAILY 04/16/21 [History] Losartan Potassium 50 mg PO DAILY 04/16/21 [History] Metoprolol Succinate 100 mg [Toprol Xl 100 MG] 100 mg PO DAILY 04/16/21 [History] Mirtazapine [Remeron] 7.5 mg PO HS 04/16/21 [History] Omeprazole 20 mg PO BID 04/16/21 [History] Ranolazine 500 MG [Ranexa 500 MG] 500 mg PO BID 04/16/21 [History] Sertraline HCl [Zoloft] 150 mg PO DAILY 04/16/21 [History] Tamsulosin HCl 0.4 mg [Flomax 0.4 MG] 0.4 mg PO DAILY 04/16/21 [History] Lurasidone HCl [Latuda] 80 mg PO DAILY 04/25/21 [History] Dicyclomine HCl 10 mg PO DAILY 04/26/21 [History] Hx Tetanus, Diphtheria Vaccination/Date Given: Yes Hx Influenza Vaccination/Date Given: Yes Hx Pneumococcal Vaccination/Date Given: No Immunizations Up to Date: Yes Travel Risk - International Travel Have you traveled outside of the country in past 3 weeks: No - Coronavirus Screening Are you exhibiting any of the following symptoms?: Yes Symptoms: Shortness of Breath, Vomiting/Diarrhea, Headaches/Body Aches/Fatigue Close contact with a COVID-19 positive Pt in past 14-21 Days: No - Vaccine Status Have you recieved a Covid-19 vaccination: No - Review of Systems Constitutional: No Symptoms Eyes: No Symptoms Ears, Nose, & Throat: No Symptoms Respiratory: No Symptoms Cardiac: No Symptoms Abdominal/Gastrointestinal: Abdominal Pain, Nausea, Vomiting Genitourinary Symptoms: No Symptoms Musculoskeletal: No Symptoms Skin: No Symptoms Neurological: No Symptoms Psychological: No Symptoms Endocrine: No Symptoms Hematologic/Lymphatic: No Symptoms Immunological/Allergic: No Symptoms All Other Systems: Reviewed and Negative - Past Medical History Pertinent Past Medical History: Yes Neurological History: No Pertinent History ENT History: No Pertinent History Cardiac History: High Cholesterol, Hypertension Respiratory History: Asthma Endocrine Medical History: Hyperthyroidism Musculoskeletal History: Arthritis, Degenerative Disk Disease GI Medical History: GERD, Hemorrhoids, Ulcer, Other History: Other Psycho-Social History: Anxiety, Depression, Eating Disorders, Panic Disorder Male Reproductive Disorders: No Pertinent History Other Medical History: ANXIETY, DEPRESSION, PANIC DISORDER, HPV - Past Surgical History Past Surgical History: Yes Neuro Surgical History: No Pertinent History Cardiac: No Pertinent History Respiratory: No Pertinent History Gastrointestinal: No Pertinent History Genitourinary: No Pertinent History Musculoskeletal: Orthopedic Surgery Male Surgical History: No Pertinent History Other Surgical History: sinus surgery, tubes in ears. L MENISCUS REPAIR 2017 - Social History Smoking Status: Current every day smoker How long have you smoked: 32 years Exposure to second hand smoke: No Drug Use: marijuana Patient Lives Alone: Yes - Nursing Vital Signs Nursing Vital Signs: Initial Vital Signs Temperature 98.7 F 04/26/21 21:56 Pulse Rate 90 04/26/21 21:56 Respiratory Rate 20 04/26/21 21:56 Blood Pressure 108/80 04/26/21 21:56 O2 Sat by Pulse Oximetry 96 04/26/21 21:56 Pain Scale Pain Intensity 9 - Physical Exam General Appearance: no apparent distress, alert, anxiety Eye Exam: PERRL/EOMI, eyes nml inspection Ears, Nose, Throat Exam: normal ENT inspection, moist mucous membranes Neck Exam: normal inspection, non-tender, supple, full range of motion Respiratory Exam: normal breath sounds, lungs clear, airway intact, No chest tenderness, No respiratory distress Cardiovascular Exam: regular rate/rhythm, normal heart sounds, normal peripheral pulses Gastrointestinal/Abdomen Exam: soft, normal bowel sounds, tenderness (Lysed), No guarding, No rebound Rectal Exam: not done Back Exam: normal inspection, normal range of motion, No CVA tenderness, No vertebral tenderness Extremity Exam: normal inspection, normal range of motion, pelvis stable Neurologic Exam: alert, oriented x 3, cooperative, technical project lead II-XII nml as tested, normal mood/affect, nml cerebellar function, nml station & gait, sensation nml Skin Exam: normal color, warm, dry Lymphatic Exam: No adenopathy SpO2 Interpretation: normal SpO2: 96 O2 Delivery: Room Air - Course Nursing assessment & vital signs reviewed: Yes Ordered Tests: Active Orders 24 hr Category Date Time Status Clean Catch Urine Specimen STAT Care 04/26/21 22:43 Active IV Insertion STAT Care 04/26/21 22:43 Active AMYLASE Stat Lab 04/26/21 22:30 Completed CBC W DIFF Stat Lab 04/26/21 22:30 Completed CMP Stat Lab 04/26/21 22:30 Completed LIPASE Stat Lab 04/26/21 22:30 Completed Lactic Acid Stat Lab 04/26/21 22:43 Completed UA W/RFX UR CULTURE Stat Lab 04/26/21 23:00 Completed Urine Triage Profile Stat Lab 04/26/21 23:00 Completed Medication Summary Generic Name Dose Route Start Last Admin Trade Name Freq PRN Reason Stop Dose Admin Sodium Chloride 1,000 mls @ 999 mls/hr 04/26/21 23:53 Sodium Chloride 0.9% 1000 Ml IV 04/27/21 00:53 .Q1H1M STA Discontinued Medications Generic Name Dose Route Start Last Admin Trade Name Freq PRN Reason Stop Dose Admin Famotidine 20 mg 04/26/21 22:43 04/26/21 22:56 Pepcid 20 Mg Vial IV 04/26/21 22:44 20 mg STAT ONE Administration Famotidine Confirm 04/26/21 22:52 Pepcid 20 Mg Vial Administered 04/26/21 22:53 Dose 20 mg IV .STK-MED ONE Hydromorphone HCl 1 mg 04/26/21 23:32 04/26/21 23:36 Hydromorphone 1 Mg/Ml Injection IV 04/26/21 23:33 1 mg STAT ONE Administration Hydromorphone HCl Confirm 04/26/21 23:35 Hydromorphone 1 Mg/Ml Injection Administered 04/26/21 23:36 Dose 1 mg .ROUTE .STK-MED ONE Sodium Chloride 1,000 mls @ 999 mls/hr 04/26/21 22:43 04/26/21 22:54 Sodium Chloride 0.9% 1000 Ml IV 04/26/21 23:43 999 mls/hr .Q1H1M STA Administration Sodium Chloride Confirm 04/26/21 22:52 Sodium Chloride 0.9% 1000 Ml Administered 04/26/21 22:53 Dose 1,000 mls @ ud .ROUTE .STK-MED ONE Morphine Sulfate 4 mg 04/26/21 22:43 04/26/21 22:56 Morphine Sulfate 4 Mg Inj IV 04/26/21 22:44 4 mg STAT ONE Administration Morphine Sulfate Confirm 04/26/21 22:52 Morphine Sulfate 4 Mg Inj Administered 04/26/21 22:53 Dose 4 mg .ROUTE .STK-MED ONE Ondansetron HCl 4 mg 04/26/21 22:43 04/26/21 22:56 Zofran 4 Mg/2 Ml Vial IV 04/26/21 22:44 4 mg STAT ONE Administration Ondansetron HCl Confirm 04/26/21 22:51 Zofran 4 Mg/2 Ml Vial Administered 04/26/21 22:52 Dose 4 mg .ROUTE .STK-MED ONE Prochlorperazine Edisylate 10 mg 04/26/21 23:32 04/26/21 23:46 Compazine 10 Mg/2 Ml IV 04/26/21 23:33 10 mg STAT ONE Administration Prochlorperazine Edisylate Confirm 04/26/21 23:35 Compazine 10 Mg/2 Ml Administered 04/26/21 23:36 Dose 10 mg .ROUTE .STK-MED ONE Lab/Rad Data: Laboratory Result Diagrams 04/26/21 22:30 04/26/21 22:30 Laboratory Results 04/26/21 04/26/21 04/26/21 Range/Units 23:00 23:00 22:43 WBC (4.0-10.5) K/mm3 RBC (4.1-5.6) M/mm3 Hgb (12.5-18.0) gm/dl Hct (42-50) % MCV (78-100) fl MCH (26-32) pg MCHC (32-36) g/dl RDW (11.5-14.0) % Plt Count (150-450) K/mm3 MPV (7.5-11.0) fl Gran % (36.0-66.0) % Eos # (Auto) (0-0.5) Absolute Lymphs (auto) (1.0-4.6) Absolute Monos (auto) (0.0-1.3) Lymphocytes % (24.0-44.0) % Monocytes % (0.0-12.0) % Eosinophils % (0.00-5.0) % Basophils % (0.0-0.4) % Absolute Granulocytes (1.4-6.9) Basophils # (0-0.4) Sodium (137-145) mmol/L Potassium (3.5-5.1) mmol/L Chloride (98-107) mmol/L Carbon Dioxide (22-30) mmol/L Anion Gap (5-15) MEQ/L BUN (9-20) mg/dL Creatinine (0.66-1.25) mg/dL Estimated GFR ML/MIN Glucose (74-106) mg/dL Lactic Acid 2.1 H (0.4-2.0) Calcium (8.4-10.2) mg/dL Total Bilirubin (0.2-1.3) mg/dL AST (17-59) U/L ALT (0-50) U/L Alkaline Phosphatase (38-126) U/L Serum Total Protein (6.3-8.2) g/dL Albumin (3.5-5.0) g/dL Amylase (30-110) U/L Lipase (23-300) U/L Urine Color YELLOW (YELLOW) Urine Appearance CLEAR (CLEAR) Urine pH 7.0 (5-6) Ur Specific [place] 1.009 (1.005-1.025) Urine Protein NEGATIVE (Negative) Urine Ketones NEGATIVE (NEGATIVE) Urine Blood NEGATIVE (0-5) Aquiles/ul Urine Nitrite NEGATIVE (NEGATIVE) Urine Bilirubin NEGATIVE (NEGATIVE) Urine Urobilinogen NEGATIVE (0-1) mg/dL Ur Leukocyte Esterase NEGATIVE (NEGATIVE) Urine WBC (Auto) NONE (0-5) /HPF Urine RBC (Auto) NONE (0-2) /HPF U Epithel Cells (Auto) NONE (FEW) /HPF Urine Bacteria (Auto) NONE (NEGATIVE) /HPF Urine Mucus (Auto) SLIGHT (NEGATIVE) /HPF Urine Culture Reflexed NO (NO) Urine Glucose NEGATIVE (NEGATIVE) mg/dL Urine Opiates Level NEGATIVE (NEGATIVE) Ur Methadone NEGATIVE (NEGATIVE) Urine Barbiturates NEGATIVE (NEGATIVE) Ur Phencyclidine (PCP) NEGATIVE (NEGATIVE) Urine Amphetamine NEGATIVE (NEGATIVE) U Benzodiazepine Level NEGATIVE (NEGATIVE) Urine Cocaine NEGATIVE (NEGATIVE) Urine Marijuana (THC) NEGATIVE (NEGATIVE) 04/26/21 04/26/21 Range/Units 22:30 22:30 WBC 14.2 H (4.0-10.5) K/mm3 RBC 5.03 (4.1-5.6) M/mm3 Hgb 15.3 (12.5-18.0) gm/dl Hct 46.2 (42-50) % MCV 91.8 (78-100) fl MCH 30.4 (26-32) pg MCHC 33.1 (32-36) g/dl RDW 13.0 (11.5-14.0) % Plt Count 299 (150-450) K/mm3 MPV 10.6 (7.5-11.0) fl Gran % 82.4 H (36.0-66.0) % Eos # (Auto) 0.03 (0-0.5) Absolute Lymphs (auto) 1.72 (1.0-4.6) Absolute Monos (auto) 0.74 (0.0-1.3) Lymphocytes % 12.1 L (24.0-44.0) % Monocytes % 5.2 (0.0-12.0) % Eosinophils % 0.2 (0.00-5.0) % Basophils % 0.1 (0.0-0.4) % Absolute Granulocytes 11.65 H (1.4-6.9) Basophils # 0.02 (0-0.4) Sodium 138 (137-145) mmol/L Potassium 3.7 (3.5-5.1) mmol/L Chloride 102 (98-107) mmol/L Carbon Dioxide 26 (22-30) mmol/L Anion Gap 14.2 (5-15) MEQ/L BUN 3 L (9-20) mg/dL Creatinine 0.70 (0.66-1.25) mg/dL Estimated GFR > 60.0 ML/MIN Glucose 111 H (74-106) mg/dL Lactic Acid (0.4-2.0) Calcium 9.9 (8.4-10.2) mg/dL Total Bilirubin 0.20 (0.2-1.3) mg/dL AST 27 (17-59) U/L ALT 43 (0-50) U/L Alkaline Phosphatase 108 (38-126) U/L Serum Total Protein 6.8 (6.3-8.2) g/dL Albumin 4.3 (3.5-5.0) g/dL Amylase 51 (30-110) U/L Lipase 64 (23-300) U/L Urine Color (YELLOW) Urine Appearance (CLEAR) Urine pH (5-6) Ur Specific [place] (1.005-1.025) Urine Protein (Negative) Urine Ketones (NEGATIVE) Urine Blood (0-5) Aquiles/ul Urine Nitrite (NEGATIVE) Urine Bilirubin (NEGATIVE) Urine Urobilinogen (0-1) mg/dL Ur Leukocyte Esterase (NEGATIVE) Urine WBC (Auto) (0-5) /HPF Urine RBC (Auto) (0-2) /HPF U Epithel Cells (Auto) (FEW) /HPF Urine Bacteria (Auto) (NEGATIVE) /HPF Urine Mucus (Auto) (NEGATIVE) /HPF Urine Culture Reflexed (NO) Urine Glucose (NEGATIVE) mg/dL Urine Opiates Level (NEGATIVE) Ur Methadone (NEGATIVE) Urine Barbiturates (NEGATIVE) Ur Phencyclidine (PCP) (NEGATIVE) Urine Amphetamine (NEGATIVE) U Benzodiazepine Level (NEGATIVE) Urine Cocaine (NEGATIVE) Urine Marijuana (THC) (NEGATIVE) - Progress Progress: improved, pain not gone completely, re-examined Progress Note: 04/27/21 00:12 Medical decision making: This patient has recurrent, cyclical vomiting syndrome. He underwent a CAT scan less than 24 hours ago. We will not repeat this study. Patient does smoke marijuana nearly every day. He has had these same issue for several years. He is never seen a scooter mechanic. Despite the multiple episodes of vomiting over several days, his electrolytes and renal function are within normal limits. His white count is elevated but this is likely due to the vomiting that he is experiencing. There are no ketones in his urine and he does not have a urinary tract infection. Patient will be discharged to home with instructions to begin a clear liquid diet. We will change his Zofran antiemetic to Phenergan orally. He then needs to follow-up with Dr. Russell again on 04/29/2021 to make arrangements for an evaluation by scooter mechanic. Counseled pt/family regarding: lab results, diagnosis, need for follow-up - Departure Departure Disposition: Home Clinical Impression: Enteritis, Cyclical vomiting Condition: Stable Critical Care Time: No Referrals: BENJAMIN RUSSELL [Primary Care Provider] - Additional Instructions: Start with clear liquid diet. Advance your diet slowly only after you are consuming clear liquids well. Follow-up with Dr. Russell in his office by phone to make arrangements for follow-up appointment and to secure a follow-up appointment with the scooter mechanic as indicated. Use the Phenergan medication to help control your vomiting if Zofran not effective. Prescriptions: Promethazine HCl 25 mg [Phenergan 25 mg] 25 mg PO Q8H PRN PRN #10 tablet PRN Reason: Vomiting
[2021-04-26] MEDS ORDERED: MORPHINE SULFATE 4 MG INJ IV ONE (22:43)
[2021-04-26] MEDS ORDERED: Sodium Chloride 0.9% 1000 ML 1,000 ML IV STA ×2 (22:43→23:53)
[2021-04-26] MEDS ORDERED: Pepcid 20 MG VIAL IV ONE ×2 (22:43→22:52)
[2021-04-26] MEDS ORDERED: Zofran 4 MG/2 ML VIAL IV ONE (22:43)
[2021-04-26 22:49] LABS: Absolute Neutrophil Ct (ANC) 11.65 (1.4-6.9); BASOPHIL % 0.1 % (0.0-0.4); Basophil (Absolute #) 0.02 (0-0.4); Eosinophil % 0.2 % (0.00-5.0); Eosinophil (Absolute #) 0.03 (0-0.5); Hematocrit 46.2 % (42-50); Hemoglobin 15.3 gm/dl (12.5-18.0); Lymphocyte (Absolute #) 1.72 (1.0-4.6); Lymphocytes % 12.1 % (24.0-44.0); Mean Cell Volume 91.8 fl (78-100); Mean Corpuscular Hemoglobin 30.4 pg (26-32); Mean Corpuscular Hgb Concent. 33.1 g/dl (32-36); Mean Platelet Volume 10.6 fl (7.5-11.0); Monocyte (Absolute #) 0.74 (0.0-1.3); Monocytes % 5.2 % (0.0-12.0); Neutrophil % 82.4 % (36.0-66.0); Platelet Count 299 K/mm3 (150-450); Red Blood Count 5.03 M/mm3 (4.1-5.6); White Blood Count 14.2 K/mm3 (4.0-10.5)
[2021-04-26] MEDS ORDERED: Zofran 4 MG/2 ML VIAL ONE (22:51)
[2021-04-26] MEDS ORDERED: Sodium Chloride 0.9% 1000 ML 1,000 ML ONE (22:52)
[2021-04-26] MEDS ORDERED: MORPHINE SULFATE 4 MG INJ ONE (22:52)
[2021-04-26 22:55] LABS: ALBUMIN 4.3 g/dL (3.5-5.0); ALKALINE PHOSPHATASE 108 U/L (38-126); AMYLASE 51 U/L (30-110); ANION GAP 14.2 MEQ/L (5-15); BLOOD UREA NITROGEN 3 mg/dL (9-20); CHLORIDE 102 mmol/L (98-107); Calcium 9.9 mg/dL (8.4-10.2); Carbon Dioxide 26 mmol/L (22-30); EST GLOMERULAR FILTRATION RATE > 60.0 ML/MIN; Glucose 111 mg/dL (74-106); LIPASE 64 U/L (23-300); Potassium 3.7 mmol/L (3.5-5.1); SGOT/AST 27 U/L (17-59); SGPT/ALT 43 U/L (0-50); SODIUM 138 mmol/L (137-145); Total Protein 6.8 g/dL (6.3-8.2)
[2021-04-26 23:15] LABS: Appearance CLEAR (CLEAR); Bilirubin NEGATIVE (NEGATIVE); Blood NEGATIVE Ery/ul (0-5); Glucose NEGATIVE (NEGATIVE); Ketones NEGATIVE (NEGATIVE); Leukocyte Esterase NEGATIVE (NEGATIVE); Mucus SLIGHT /HPF (NEGATIVE); Nitrite NEGATIVE (NEGATIVE); Protein,Urine Dip NEGATIVE (Negative); Specific Gravity 1.009 (1.005-1.025); Urobilinogen NEGATIVE mg/dL (0-1)
[2021-04-26 23:29] LABS: Amphetamine,Urine NEGATIVE (NEGATIVE); Barbiturate,Urine NEGATIVE (NEGATIVE); Benzodiazepine,Urine NEGATIVE (NEGATIVE); Cocaine,Urine NEGATIVE (NEGATIVE); Methadone,Urine NEGATIVE (NEGATIVE); Opiate,Urine NEGATIVE (NEGATIVE); PCP,Urine NEGATIVE (NEGATIVE); THC,Urine NEGATIVE (NEGATIVE)
[2021-04-26] MEDS ORDERED: Compazine 10 MG/2 ML IV ONE (23:32)
[2021-04-26] MEDS ORDERED: Hydromorphone 1 mg/ml Injection IV ONE (23:32)
[2021-04-26] MEDS ORDERED: Compazine 10 MG/2 ML ONE (23:35)
[2021-04-26] MEDS ORDERED: Hydromorphone 1 mg/ml Injection ONE (23:35)
[2021-04-27] MEDS ORDERED: Sodium Chloride 0.9% 1000 ML 1,000 ML ONE (00:32)
[2021-04-27 01:34] VITALS: BP 139/79; PULSE 74; O2SAT 97
== END 2021-04-27 01:44 | disposition home or self-care (01) ==
LOC: ED 21:55
DX: R11.15 Cyclical vomiting syndrome unrelated to migraine (principal)
CPT/HCPCS: 36000; 36415; 80053; 80307; 81001; 82150; 83605; 83690; 85025; 96374; 96375; 99284; J1170; J2270; J2405